=== PATIENT | female | born 1955 | race Caucasian/White ===

== ENCOUNTER → 2019-03-01 | Day surgery (SDC) | payer BC ==
[2019-02-27 15:59] VITALS: BP 132/74
--- NOTE | 2019-02-27 16:25 | PCM.EKG ---
[facility] Test Date: 2019-02-27 Test Time: 16:12:49 Pat Name: AGUSTO KENDALL Department: Room: Gender: F Lead Neurodiagnostic Technologist: ANDREW : 1955 Requested By: MAYANK RAMIREZ Order Number: [id number] Reading MD: Tomi Villar Measurements Intervals [place] Rate: 73 P: 64 ID: [id number] QRS: 31 QRSD: 86 T: 53 QT: 414 QTc: 456 Interpretive Statements Normal sinus rhythm Low voltage QRS Borderline ECG No previous ECG available for comparison Electronically Signed On 03-19-2019 15:28:52 CDT by Tomi Villar Please click the below link to view image of tracing.
[2019-02-27 16:35] LABS: BASOPHIL % 0.4 % (0.0-0.2); EOSINOPHIL # 0.3 10^3/uL (0.0-0.2); EOSINOPHIL % 2.9 % (0.0-5.0); LYMPHOCYTES # 2.6 10^3/uL (1.0-4.8); LYMPHOCYTES % 26.5 % (24.0-44.0); MEAN CORP HGB 29.3 pg (26-34); MONOCYTES # 0.6 10^3/uL (0.3-0.8); MONOCYTES % 6.6 % (5.0-12.0); NEUTROPHIL # 6.1 10^3/uL (1.8-7.7); NEUTROPHILS % 63.4 % (41.0-85.0); RED CELL DISTRIBUTION WIDTH 13.3 % (11.5-14.5)
[2019-02-27 16:45] LABS: CALCIUM 10.7 mg/dL (8.4-10.5); CARBON DIOXIDE 24.1 mmol/L (20.0-32)
[~2019-03-01] VITALS: Ht 157.5 cm; Wt 99.3 kg
[2019-03-01] VITALS (10 sets, daily range): BP systolic 106–130; BP diastolic 62–75
[~2019-03-01] MED LIST: ALBU8.5H7 IH; ASCO500T4 PO; ASPI81TA52 PO; ATOR80TA PO; CHOL100015 PO; CHOL2000 PO; CICL6.1H3 IH; CIPR500T86 PO; CITA10TA4 PO; DECADRON ONE; DILAUDID IV PRN; DIPRIVAN IV ONE; FLUT1BLS3 PO; LACTATED RINGERS 1,000 ML IV SCH; LASIX IV ONE; LASIX IV SCH; LEVO100T5 PO; LIDOCAINE 2% VIAL ONE; LOSA1TAB19 PO; NORCO 7.5MG PO PRN; PEPCID IV ONE; SUBLIMAZE IV PRN; SUBLIMAZE ONE; TAMS-14 PO; TORADOL ONE; TRAM50TA PO; TRANSDERM-SCOP TD ONE; VERSED ONE; ZOFRAN 4 MG/2 ML VIAL ONE
--- NOTE | 2019-03-01 09:11 | OPH ---
DATE OF SURGERY: 03/01/2019 PREOPERATIVE DIAGNOSIS: Right renal calculus. FINAL DIAGNOSIS: Right renal calculus. PROCEDURE: Right extracorporeal shock wave lithotripsy. DESCRIPTION OF PROCEDURE: The patient was brought to the lithotripsy room, was put in supine position on the lithotripsy table. The right preoperative renal ultrasound was initially performed which revealed a calculus in the upper pole of the right kidney measuring 6.1 mm in diameter. There is no evidence of hydronephrosis, no cysts or masses noted. After the patient was given an LMA general anesthesia and after localization of the stone with the use of an ultrasound and fluoroscopy, a right ESWL was then performed using a Dornier Compact Delta II Lithotripter. A total of 1500 shockwaves were delivered to the stone in the upper pole of the right kidney under ultrasound guidance. After fragmentation of the stone as noted in the ultrasound, the procedure was terminated. The patient was awakened and was transferred to the recovery room in stable condition. Lion Floyd MD DR: LISA/berry JOB# [id number]
== END | disposition home or self-care (01) | DRG 694 ==
LOC: SDC 05:59
PROVIDERS: ATTEND Urology
DX: N20.0 Calculus of kidney (principal); E78.5 Hyperlipidemia, unspecified; E03.9 Hypothyroidism, unspecified; K21.9 Gastro-esophageal reflux disease without esophagitis; I10 Essential (primary) hypertension; E66.01 Morbid (severe) obesity due to excess calories; Z68.41 Body mass index [BMI] 40.0-44.9, adult; Z79.82 Long term (current) use of aspirin; Z79.899 Other long term (current) drug therapy; Z88.8 Allergy status to other drugs, medicaments and biological substances; Z98.890 Other specified postprocedural states; Z79.01 Long term (current) use of anticoagulants; Z80.59 Family history of malignant neoplasm of other urinary tract organ; Z80.3 Family history of malignant neoplasm of breast; Z82.5 Family history of asthma and other chronic lower respiratory diseases; Z82.49 Family history of ischemic heart disease and other diseases of the circulatory system; Z83.3 Family history of diabetes mellitus
CPT/HCPCS: 36415; 50590; 80048; 85025; 85610; 85730; 93005; J1100 ×2; J1885; J2001; J2250; J2405 ×2; J3010; J3490 ×2

== ENCOUNTER 2019-04-18 21:19 | Emergency (ER) | payer BC ==
[~2019-04-18] VITALS: Ht 160 cm; Wt 99.3 kg
[~2019-04-18 21:19] MED LIST changes: -DECADRON ONE; -DILAUDID IV PRN; -DIPRIVAN IV ONE; -LACTATED RINGERS 1,000 ML IV SCH; -LASIX IV ONE; -LASIX IV SCH; -LIDOCAINE 2% VIAL ONE; -NORCO 7.5MG PO PRN; -PEPCID IV ONE; -SUBLIMAZE IV PRN; -SUBLIMAZE ONE; -TORADOL ONE; -TRANSDERM-SCOP TD ONE; -VERSED ONE; -ZOFRAN 4 MG/2 ML VIAL ONE
[2019-04-18 21:25] VITALS: BP 130/94
--- NOTE | 2019-04-18 21:25 | NUR ---
ARRIVAL PATIENT PRESENTS WITH COMPLAINTS OF UPPER ABDOMINAL PAIN FOR THE PAST WEEK. DENIES N/V. ALSO REPORT BACK PAIN. VSS. NO SIGNS OF DISTRESS NOTED. MD ROBBIN NOTIFIED.
[2019-04-18 21:40] VITALS: BP 130/94
[2019-04-18] MEDS ORDERED: TORADOL IM STA (21:40)
--- NOTE | 2019-04-18 21:43 | ER.PDOC ---
General Chief Complaint: Abdomen Pain Stated Complaint: ABD PAIN,DIARRHEA Time seen by MD: 21:42 Source: patient Exam Limitations: no limitations History of Present Illness Initial Comments Upper abdominal pain and diarrhea for 1 week. No vomiting, fever or chills. Severity/Quality: moderate, sharpness Radiation: no radiation Associated Symptoms: diarrhea Exacerbated by: nothing Relieved By: nothing Allergies: Coded Allergies: adhesive tape (Verified Allergy, Unknown, BLISTERS, 02/27/19) PT CAN USE PAPER TAPE Uncoded Allergies: STERI STRIPS (Allergy, Unknown, BLISTERS, 07/11/17) Home Meds Active Scripts Tramadol Hcl (TRAMADOL HCL) 50 Mg Tablet, 50 MG PO Q6 PRN for PAIN, #20 TABLET Prov:MAYANK RAMIREZ MD 03/01/19 Tamsulosin Hcl (FLOMAX) 0.4 Mg Cap.er.24h, 0.4 MG PO DAILY24, #21 CAPSULE Prov:MAYANK RAMIREZ MD 03/01/19 Reported Medications Ascorbic Acid (VITAMIN C) 500 Mg Tablet, 500 MG PO BID, TAB 03/01/19 Albuterol Sulfate (PROAIR HFA) 8.5 Gm Hfa.aer.ad, 8.5 GM IH Q4H PRN for JARON RTNESS OF BREATH, INHALATION 02/27/19 Fluticasone/Umeclidin/Vilanter (Trelegy Ellipta 100-62.5-25) 100-62.5 Blst.w.dev, 1 PUFF PO DAILY24 02/27/19 Cholecalciferol (Vitamin D3) (VITAMIN D) 2,000 Unit Capsule, 1 CAP PO DAILY, #30 CAP 3 Refills 02/27/19 Aspirin (ASPIR-LOW) 81 Mg Tablet.dr, 81 MG PO DAILY 02/16/15 Atorvastatin 80MG (LIPITOR 80MG) 80 Mg Tablet, 0.5 TAB PO DAILY, TAB 02/16/15 Levothyroxine Sodium (LEVOTHYROXINE SODIUM) 100 Mcg Tablet, 100 MCG PO DAILY, TABLET 02/16/15 Citalopram Hydrobromide (CITALOPRAM HBR) 10 Mg Tablet, 10 MG PO DAILY, TABLET 02/16/15 Losartan/Hydrochlorothiazide (LOSARTAN-HCTZ 50-12.5 MG TAB) 1 Each Tablet, 1 EACH PO DAILY, TABLET 02/16/15 Vital Signs First Vital Signs Date Time Temp Pulse Resp B/P (MAP) Pulse Ox O2 Delivery O2 Flow Rate FiO2 04/18/19 21:25 97.9 71 18 04/18/19 21:25 96 Room Air 04/18/19 21:40 130/94 (106) Last Vital Signs Date Time Temp Pulse Resp B/P (MAP) Pulse Ox O2 Delivery O2 Flow Rate FiO2 04/18/19 21:40 97.9 71 18 130/94 (106) 96 Room Air Past Medical History Medical History: cancer, high cholesterol, hypertension, thyroid disease Surgical History: appendectomy, knee Social History Smoking: non-smoker Alcohol Use: none Drug Use: none Constitutional: no symptoms reported Respiratory: no symptoms reported Cardiovascular: no symptoms reported Gastrointestinal: see HPI Genitourinary: no symptoms reported All Other Systems: Reviewed and Negative Physical Exam General Appearance: No Apparent Distress, WD/WN Neck: Non-Tender, Full Range of Motion, Supple, Normal Inspection Respiratory: chest non-tender, lungs clear, normal breath sounds, no respiratory distress, no accessory muscle use Cardiovascular: Normal Peripheral Pulses, Regular Rate, Rhythm, No Edema, No Gallop, No JVD, No Murmur Gastrointestinal: Normal Bowel Sounds, No Organomegaly, No Pulsatile Mass, Tenderness (upper abdomen) Back: Normal Inspection, No CVA Tenderness, No Vertebral Tenderness Extremities: Normal Range of Motion, Non-Tender, Normal Inspection, No Pedal Edema, No Calf Tenderness, Normal Capillary Refill, Pelvis Stable Neurologic/Psychiatric: development intern II-XII NML as Tested, No Motor/Sensory Deficits, Alert, Normal Mood/Affect, Oriented x 3 Skin: Normal Color, Warm/Dry Results/Orders Results/Orders Orders - JOSEFINA SIEGEL MD Cbc With Auto Diff (04/18/19 21:40) Comprehensive Metabolic Panel (04/18/19 21:40) Lipase (04/18/19 21:40) Helicobacter Pylori (04/18/19 21:40) PT (04/18/19 21:40) Partial Thromboplastin Time. (04/18/19 21:40) Urinalysis (04/18/19 21:40) Ct Abd/Pelvis Wo Iv Contrast (04/18/19 21:40) Ekg-Routine (04/18/19 21:40) Ketorolac Tromethamine (Toradol) (04/18/19 21:40) Ketorolac Tromethamine (Toradol) (04/18/19 21:48) Urine Culture (04/18/19 UNK) Vital Signs Date Time Temp Pulse Resp B/P (MAP) Pulse Ox O2 Delivery O2 Flow Rate FiO2 04/18/19 21:40 97.9 71 18 130/94 (106) 96 Room Air 04/18/19 21:25 97.9 71 18 96 Room Air 04/18/19 21:25 97.9 71 18 Administered Medications Medications (Trade) Dose Ordered Sig/David Route PRN Reason Start Time Stop Time Status Last Admin Dose Admin Ketorolac Tromethamine (Toradol) 60 mg STAT STAT IM 04/18/19 21:40 04/18/19 21:43 DC 04/18/19 21:55 60 MG Laboratory Tests Test 04/18/19 22:00 04/18/19 22:45 White Blood Count 8.3 10^3/uL (4.5-11.0) Red Blood Count 4.33 10^6/uL (4.00-5.20) Hemoglobin 12.5 g/dL (12.0-15.0) Hematocrit 37.6 % (36.0-46.0) Mean Corpuscular Volume 86.8 fL (78-100) Mean Corpuscular Hemoglobin 28.9 pg (26-34) Mean Corpuscular Hemoglobin Concent 33.2 g/dL (33-37) Red Cell Distribution Width 13.8 % (11.5-14.5) Platelet Count 290 10^3/uL (150-400) Mean Platelet Volume 9.3 fL (7.8-11.0) Neutrophils (%) (Auto) 54.6 % (41.0-85.0) Lymphocytes (%) (Auto) 31.3 % (24.0-44.0) Monocytes (%) (Auto) 10.1 % (5.0-12.0) Neutrophils # (Auto) 4.6 10^3/uL (1.8-7.7) Lymphocytes # (Auto) 2.6 10^3/uL (1.0-4.8) Monocytes # (Auto) 0.8 10^3/uL (0.3-0.8) Absolute Immature Granulocyte (auto 0.02 10^3 u/L (0-2) Immature Granulocytes % 0.20 % (0.00-0.50) Eosinophils % 3.1 % (0.0-5.0) Basophils % 0.7 % (0.0-0.2) H Basophils # 0.1 10^3/uL (0.0-0.1) Eosinophil Count 0.3 10^3/uL (0.0-0.2) H Prothrombin Time 10.2 SEC (9.4-11.5) Prothrombin Time INR (Non-Therap) 1.0 Activated Partial Thromboplast Time 23.6 SEC (24.67-30.72) Sodium Level 141 mmol/L (132-145) Potassium Level 3.2 mmol/L (3.6-5.2) L Chloride Level 104.0 mmol/L (96-109) Carbon Dioxide Level 25.6 mmol/L (20.0-32) Anion Gap 14.6 Blood Urea Nitrogen 16 mg/dL (7-18) Creatinine 0.82 mg/dL (0.59-1.40) Estimated GFR () 85.8 (>/=60) BUN/Creatinine Ratio 19.0 Glucose Level 121 mg/dL (70-110) H Calcium Level 9.8 mg/dL (8.4-10.5) Total Bilirubin 0.4 mg/dL (0.2-1.0) Aspartate Amino Transferase (AST) 19 U/L (0-35) Alanine Aminotransferase (ALT) 25 U/L (12-78) Alkaline Phosphatase 122 U/L (50-136) Total Protein 7.1 g/dL (6.4-8.2) Albumin 3.2 g/dL (3.4-5.0) L Globulin 3.9 Lipase 68 U/L (114-286) L Helicobacter pylori Screen NEGATIVE (NEGATIVE) Urine Collection Type CCMS Urine Color YELLOW (YELLOW) Urine Appearance CLOUDY (CLEAR) H Urine Bilirubin NEGATIVE MG/DL (NEGATIVE) Urine Ketones NEGATIVE (NEGATIVE) Urine Specific [place] 1.020 (1.005-1.035) Urine pH 6 (5.0-6.0) Urine Protein NEGATIVE (NEGATIVE) Urine Urobilinogen NORMAL (NEGATIVE) Urine Nitrate NEGATIVE (NEGATIVE) Urine Leukocyte Esterase 500/uL 2+ (NEGATIVE) Urine Blood 50 2+ (NEGATIVE) H Urine RBC 5-10 RBC/HPF (NONE SEEN) H Urine WBC TNTC WBC/HPF (0-2) H Urine Squamous Epithelial Cells MANY #/HPF (FEW) Urine Renal Epithelial Cells NONE SEEN #/HPF (NONE Urine Bacteria FEW (NONE SEEN) H Urine Glucose NORMAL (NEGATIVE) EKG/XRAY/CT/US CT Comments: No acute intra-abdominal process demonstrated. Course Vitals & review Data Vital Sign - Last 24 Hours 04/18/19 04/18/19 04/18/19 21:25 21:25 21:40 Temp 97.9 97.9 97.9 Pulse 71 71 71 Resp 18 18 18 B/P (MAP) 130/94 (106) Pulse Ox 96 96 O2 Delivery Room Air Room Air Laboratory Tests Test 04/18/19 22:00 04/18/19 22:45 White Blood Count 8.3 10^3/uL Red Blood Count 4.33 10^6/uL Hemoglobin 12.5 g/dL Hematocrit 37.6 % Mean Corpuscular Volume 86.8 fL Mean Corpuscular Hemoglobin 28.9 pg Mean Corpuscular Hemoglobin Concent 33.2 g/dL Red Cell Distribution Width 13.8 % Platelet Count 290 10^3/uL Mean Platelet Volume 9.3 fL Neutrophils (%) (Auto) 54.6 % Lymphocytes (%) (Auto) 31.3 % Monocytes (%) (Auto) 10.1 % Neutrophils # (Auto) 4.6 10^3/uL Lymphocytes # (Auto) 2.6 10^3/uL Monocytes # (Auto) 0.8 10^3/uL Absolute Immature Granulocyte (auto 0.02 10^3 u/L Immature Granulocytes % 0.20 % Eosinophils % 3.1 % Basophils % 0.7 % Basophils # 0.1 10^3/uL Eosinophil Count 0.3 10^3/uL Prothrombin Time 10.2 SEC Prothrombin Time INR (Non-Therap) 1.0 Activated Partial Thromboplast Time 23.6 SEC Sodium Level 141 mmol/L Potassium Level 3.2 mmol/L Chloride Level 104.0 mmol/L Carbon Dioxide Level 25.6 mmol/L Anion Gap 14.6 Blood Urea Nitrogen 16 mg/dL Creatinine 0.82 mg/dL Estimated GFR () 85.8 BUN/Creatinine Ratio 19.0 Glucose Level 121 mg/dL Calcium Level 9.8 mg/dL Total Bilirubin 0.4 mg/dL Aspartate Amino Transf (AST/SGOT) 19 U/L Alanine Aminotransferase (ALT/SGPT) 25 U/L Alkaline Phosphatase 122 U/L Total Protein 7.1 g/dL Albumin 3.2 g/dL Globulin 3.9 Lipase 68 U/L Helicobacter pylori Screen NEGATIVE Urine Collection Type CCMS Urine Color YELLOW Urine Appearance CLOUDY Urine Bilirubin NEGATIVE MG/DL Urine Ketones NEGATIVE Urine Specific [place] 1.020 Urine pH 6 Urine Protein NEGATIVE Urine Urobilinogen NORMAL Urine Nitrate NEGATIVE Urine Leukocyte Esterase 500/uL 2+ Urine Blood 50 2+ Urine RBC 5-10 RBC/HPF Urine WBC TNTC WBC/HPF Urine Squamous Epithelial Cells MANY #/HPF Urine Renal Epithelial Cells NONE SEEN #/HPF Urine Bacteria FEW Urine Glucose NORMAL O2 Sat by Pulse Oximetry: 96 Departure Time of Disposition: 23:54 Disposition: 01 HOME, SELF-CARE Impression: Primary Impression: Nonspecific abdominal pain Additional Impressions: GERD (gastroesophageal reflux disease) UTI (urinary tract infection) Condition: Stable Referrals: [facility] THERMAL SPRAY OPERATOR (PCP) PRIMARY CARE PROVIDER Additional Instructions: Tramadol Macrobid Protonix F/U with your PCP in 1-2 days Return if worsening symptoms or concerns. Duration or Time Spent with Pa: 60 mins Problem Qualifiers Additional Impressions: GERD (gastroesophageal reflux disease) Esophagitis presence: esophagitis presence not specified Qualified Codes: K21.9 - Gastro-esophageal reflux disease without esophagitis UTI (urinary tract infection) Urinary tract infection type: site unspecified Hematuria presence: with hematuria Qualified Codes: N39.0 - Urinary tract infection, site not specified; R31.9 - Hematuria, unspecified JOSEFINA SIEGEL MD Apr 18, 2019 21:43
[2019-04-18] MEDS ORDERED: TORADOL ONE (21:48)
[2019-04-18 22:05] LABS: BASOPHIL # 0.1 10^3/uL (0.0-0.1); BASOPHIL % 0.7 % (0.0-0.2); EOSINOPHIL # 0.3 10^3/uL (0.0-0.2); EOSINOPHIL % 3.1 % (0.0-5.0); LYMPHOCYTES # 2.6 10^3/uL (1.0-4.8); LYMPHOCYTES % 31.3 % (24.0-44.0); MEAN CORP HGB 28.9 pg (26-34); MONOCYTES # 0.8 10^3/uL (0.3-0.8); MONOCYTES % 10.1 % (5.0-12.0); NEUTROPHIL # 4.6 10^3/uL (1.8-7.7); NEUTROPHILS % 54.6 % (41.0-85.0); RED CELL DISTRIBUTION WIDTH 13.8 % (11.5-14.5)
--- NOTE | 2019-04-18 22:12 | PCM.EKG ---
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
[2019-04-18 22:23] LABS: CALCIUM 9.8 mg/dL (8.4-10.5); CARBON DIOXIDE 25.6 mmol/L (20.0-32)
[2019-04-18 22:30] VITALS: BP 120/73
[2019-04-18 22:53] LABS: BILIRUBIN,URINE NEGATIVE (NEGATIVE); UROBILINOGEN,URINE NORMAL (NEGATIVE)
[2019-04-18 23:05] LABS: APPEARANCE,URINE CLOUDY (CLEAR); UA COLOR YELLOW (YELLOW)
[2019-04-18 23:30] VITALS: BP 123/81
--- NOTE | 2019-04-18 23:40 | DIREP ---
PROCEDURE:CT ABD/PELVIS WITHOUT CONTRAST TECHNIQUE:No oral contrast was given. Axial cuts were obtained through the abdomen and pelvis without IV contrast. The images were viewed at lung, liver, bone, and soft tissue settings. Sagittal and coronal reconstructions are provided. COMPARISON:[facility], CT, CT RENAL STONE PROTOCOL, 02/16/2015, 09:59 AM. INDICATIONS:upper abdominal pain FINDINGS: LOWER CHEST:The lung bases are clear. LIVER:Normal. BILIARY:Normal. PANCREAS:Normal. SPLEEN:Normal. KIDNEYS:No evidence of urinary calculi. No evidence of obstructive uropathy. Renal morphology appears unremarkable. ADRENALS:There is a left adrenal nodule with Hounsfield units measuring 17. This measures 1.6 cm and is essentially unchanged dating back 2012. AORTA/VASCULAR:Normal. RETROPERITONEUM:Normal. BOWEL/MESENTERY:Bowel evaluation is limited by the lack of oral contrast. No evidence of bowel obstruction, free intraperitoneal air, or abscess. GI anastomotic sutures seen in the right lower quadrant PELVIS:Normal. BONES:Normal OTHER: The absence of IV contrast limits evaluation of the soft tissues. CONCLUSION:No acute intra-abdominal process demonstrated. Dictated by: Deena Thomas M.D. on 04/18/2019 at 11:35 PM
== END 2019-04-19 00:10 | disposition home or self-care (01) ==
LOC: ER 21:19
DX: K21.9 Gastro-esophageal reflux disease without esophagitis (principal); E78.00 Pure hypercholesterolemia, unspecified; E07.9 Disorder of thyroid, unspecified; N39.0 Urinary tract infection, site not specified; I10 Essential (primary) hypertension; Z79.1 Long term (current) use of non-steroidal anti-inflammatories (NSAID); Z79.82 Long term (current) use of aspirin; Z79.899 Other long term (current) drug therapy; Z88.8 Allergy status to other drugs, medicaments and biological substances
CPT/HCPCS: 36415; 74176; 80053; 81000; 83690; 85025; 85610; 85730; 86677; 87086; 93005; 96372; 99285; J1885

== ENCOUNTER 2020-02-06 05:47 | Emergency (ER) | payer BC ==
[~2020-02-06] VITALS: Ht 160 cm; Wt 98.9 kg
[2020-02-06 06:02] VITALS: BP 138/68
--- NOTE | 2020-02-06 06:10 | NUR ---
IV 20G IV TO RIGHT AC STARTED BY Sasha GUERRERO RN. FLUSHED AND LOCKED WITH 10CC NS.
--- NOTE | 2020-02-06 06:13 | NUR ---
DR DR OLIVER AT BEDSIDE
[2020-02-06] MEDS ORDERED: TORADOL ONE (06:14)
[2020-02-06] MEDS ORDERED: TORADOL IV STA (06:15)
--- NOTE | 2020-02-06 06:17 | ER.PDOC ---
General Chief Complaint: Flank Pain Stated Complaint: KIDNEY STONES Time seen by MD: 06:10 Source: patient Exam Limitations: no limitations History of Present Illness Initial Comments Patient c/o waxing/waning right flank pain onset 2:00 am 02/04. Pain is similar to previous kidney stones. She has had multiple stones and many procedures for stone removal. She denies fever or dysuria. Timing/Duration: 24 hours Severity/Quality: moderate, severe, cramping, sharpness, stabbing Radiation: flank (right) Associated Symptoms: denies symptoms Exacerbated by: nothing Relieved By: nothing Allergies: Coded Allergies: adhesive tape (Verified Allergy, Unknown, BLISTERS, 02/27/19) PT CAN USE PAPER TAPE Uncoded Allergies: STERI STRIPS (Allergy, Unknown, BLISTERS, 07/11/17) Home Meds Active Scripts Tramadol Hcl (TRAMADOL HCL) 50 Mg Tablet, 50 MG PO Q6 PRN for PAIN, #20 TABLET Prov:MAYANK RAMIREZ MD 03/01/19 Tamsulosin Hcl (FLOMAX) 0.4 Mg Cap.er.24h, 0.4 MG PO DAILY24, #21 CAPSULE Prov:MAYANK RAMIREZ MD 03/01/19 Reported Medications Ascorbic Acid (VITAMIN C) 500 Mg Tablet, 500 MG PO BID, TAB 03/01/19 Albuterol Sulfate (PROAIR HFA) 8.5 Gm Hfa.aer.ad, 8.5 GM IH Q4H PRN for SHORTNESS OF BREATH, INHALATION 02/27/19 Fluticasone/Umeclidin/Vilanter (Trelegy Ellipta 100-62.5-25) 100-62.5 Blst.w.dev, 1 PUFF PO DAILY24 02/27/19 Cholecalciferol (Vitamin D3) (VITAMIN D) 2,000 Unit Capsule, 1 CAP PO DAILY, #30 CAP 3 Refills 02/27/19 Aspirin (ASPIR-LOW) 81 Mg Tablet.dr, 81 MG PO DAILY 02/16/15 Atorvastatin 80MG (LIPITOR 80MG) 80 Mg Tablet, 0.5 TAB PO DAILY, TAB 02/16/15 Levothyroxine Sodium (LEVOTHYROXINE SODIUM) 100 Mcg Tablet, 100 MCG PO DAILY, TABLET 02/16/15 Citalopram Hydrobromide (CITALOPRAM HBR) 10 Mg Tablet, 10 MG PO DAILY, TABLET 02/16/15 Losartan/Hydrochlorothiazide (LOSARTAN-HCTZ 50-12.5 MG TAB) 1 Each Tablet, 1 EACH PO DAILY, TABLET 02/16/15 Vital Signs First Vital Signs Date Time Temp Pulse Resp B/P (MAP) Pulse Ox O2 Delivery O2 Flow Rate FiO2 02/06/20 06:02 98.1 83 18 95 02/06/20 06:02 138/68 (91) Room Air Last Vital Signs Date Time Temp Pulse Resp B/P (MAP) Pulse Ox O2 Delivery O2 Flow Rate FiO2 02/06/20 06:02 98.1 83 18 138/68 (91) 95 Room Air Past Medical History Medical History: asthma, high cholesterol, hypertension, other (history of multiple kidney stones) Surgical History: appendectomy, cancer surgery, renal (lithotripsy, stents) Family History Significant Family History: no pertinent family hx Social History Smoking: non-smoker Alcohol Use: none Drug Use: none Constitutional: no symptoms reported EENTM: no symptoms reported Respiratory: no symptoms reported Cardiovascular: no symptoms reported Gastrointestinal: no symptoms reported Genitourinary: flank pain (right) Musculoskeletal: no symptoms reported Skin: no symptoms reported Physical Exam General Appearance: No Apparent Distress, Obese Respiratory: lungs clear, normal breath sounds, no respiratory distress, no accessory muscle use Cardiovascular: Regular Rate, Rhythm, No Murmur Gastrointestinal: Normal Bowel Sounds, Non Tender Back: CVA Tenderness (R) Extremities: Non-Tender, No Pedal Edema, No Calf Tenderness Neurologic/Psychiatric: Alert, Normal Mood/Affect, Oriented x 3 Skin: Normal Color, Warm/Dry Results/Orders Results/Orders Vital Signs Date Time Temp Pulse Resp B/P (MAP) Pulse Ox O2 Delivery O2 Flow Rate FiO2 02/06/20 06:02 98.1 83 18 138/68 (91) 95 Room Air 02/06/20 06:02 98.1 83 18 95 Administered Medications Medications (Trade) Dose Ordered Sig/David Route PRN Reason Start Time Stop Time Status Last Admin Dose Admin Ketorolac Tromethamine (Toradol) 30 mg STAT STAT IV 02/06/20 06:15 02/06/20 06:16 UNV 02/06/20 06:20 30 MG Sodium Chloride 1,000 ml @ 0 mls/hr Q0M STAT IV 02/06/20 06:20 02/06/20 06:21 UNV 02/06/20 06:24 0 MLS/HR Laboratory Tests Test 02/06/20 06:01 02/06/20 07:18 White Blood Count 7.2 10^3/uL (4.5-11.0) Red Blood Count 4.80 10^6/uL (4.00-5.20) Hemoglobin 14.1 g/dL (12.0-15.0) Hematocrit 41.5 % (36.0-46.0) Mean Corpuscular Volume 86.5 fL (78-100) Mean Corpuscular Hemoglobin 29.4 pg (26-34) Mean Corpuscular Hemoglobin Concent 34.0 g/dL (33-36.5) Red Cell Distribution Width 13.1 % (11.5-14.5) Platelet Count 305 10^3/uL (150-400) Mean Platelet Volume 9.1 fL (7.8-11.0) Neutrophils (%) (Auto) 53.9 % (41.0-85.0) Lymphocytes (%) (Auto) 35.9 % (24.0-44.0) Monocytes (%) (Auto) 6.0 % (5.0-12.0) Neutrophils # (Auto) 3.9 10^3/uL (1.8-7.7) Lymphocytes # (Auto) 2.59 10^3/uL1 (1.0-4.8) Monocytes # (Auto) 0.4 10^3/uL (0.3-0.8) Absolute Immature Granulocyte (auto 0.02 10^3 u/L (0-2) Absolute Eosinophils (auto) 0.2 10^3/uL (0.0-0.2) Immature Granulocytes % 0.30 % (0.00-0.50) Eosinophils % 3.2 % (0.0-5.0) Basophils % 0.7 % (0.0-0.2) H Basophils # 0.1 10^3/uL (0.0-0.1) Prothrombin Time 9.9 SEC (9.3-11.3) Prothrombin Time INR (Non-Therap) 1.0 Activated Partial Thromboplast Time 23.9 SEC (24.67-30.72) Sodium Level 140 mmol/L (132-145) Potassium Level 3.4 mmol/L (3.6-5.2) L Chloride Level 104.0 mmol/L (96-109) Carbon Dioxide Level 24.1 mmol/L (20.0-32) Anion Gap 15.3 Blood Urea Nitrogen 19 mg/dL (7-18) H Creatinine 0.99 mg/dL (0.59-1.40) Estimated GFR () 68.8 (>/=60) Est GFR (CKD-EPI)(Non-Afr Salvadorean) 56.8 (>/=60) BUN/Creatinine Ratio 19.0 Glucose Level 133 mg/dL (70-110) H Calcium Level 9.7 mg/dL (8.4-10.5) Total Bilirubin 0.7 mg/dL (0.2-1.0) Aspartate Amino Transferase (AST) 27 U/L (0-35) Alanine Aminotransferase (ALT) 24 U/L (12-78) Alkaline Phosphatase 148 U/L (50-136) H Total Protein 7.6 g/dL (6.4-8.2) Albumin 3.4 g/dL (3.4-5.0) Globulin 4.2 Urine Collection Type VOID Urine Color YELLOW (YELLOW) Urine Appearance CLOUDY (CLEAR) H Urine Bilirubin NEGATIVE MG/DL (NEGATIVE) Urine Ketones NEGATIVE (NEGATIVE) Urine Specific [place] 1.025 (1.005-1.035) Urine pH 5.5 (5.0-6.0) Urine Protein NEGATIVE (NEGATIVE) Urine Urobilinogen NEGATIVE (NEGATIVE) Urine Nitrate NEGATIVE (NEGATIVE) Urine Leukocyte Esterase SMALL (NEGATIVE) Urine Blood SMALL (NEGATIVE) Urine RBC 0-2 RBC/HPF (NONE SEEN) Urine WBC 10-25 WBC/HPF (0-2) H Urine Squamous Epithelial Cells MODERATE #/HPF (FEW) Urine Bacteria MANY (NONE SEEN) H Urine Glucose NORMAL (NEGATIVE) Progress Progress WBC 7.2; creatinine WNL; CT does not identify ureterolithiasis; UA pending at time of shift change Patient's pain is "almost zero" after toradol. Final disposition per Dr. Josefina LEUNG DEPART Departure Time of Disposition: 07:57 Disposition: 01 HOME, SELF-CARE Impression: Primary Impression: Right flank pain Additional Impression: UTI (urinary tract infection) Condition: Stable Referrals: [facility] INDUSTRIAL ROOFER HELPER (PCP) PRIMARY CARE PROVIDER Additional Instructions: Cipro Continue Tramadol at home F/U with your PCP in 2-3 days Return to ED if worsening or concerns Duration or Time Spent with Pa: 60 min Problem Qualifiers Additional Impression: UTI (urinary tract infection) Urinary tract infection type: site unspecified Hematuria presence: without hematuria Qualified Codes: N39.0 - Urinary tract infection, site not specified AIXA OLIVER DO Feb 06, 2020 06:17 JOSEFINA SIEGEL MD Feb 06, 2020 08:00
[2020-02-06] MEDS ORDERED: NS 1000ML 1,000 ML ONE (06:19)
[2020-02-06] MEDS ORDERED: NS 1000ML 1,000 ML STA (06:20)
[2020-02-06 06:23] LABS: BASOPHIL # 0.1 10^3/uL (0.0-0.1); BASOPHIL % 0.7 % (0.0-0.2); EOSINOPHIL # 0.2 10^3/uL (0.0-0.2); EOSINOPHIL % 3.2 % (0.0-5.0); LYMPHOCYTES # 2.59 10^3/uL1 (1.0-4.8); LYMPHOCYTES % 35.9 % (24.0-44.0); MEAN CORP HGB 29.4 pg (26-34); MONOCYTES # 0.4 10^3/uL (0.3-0.8); NEUTROPHIL # 3.9 10^3/uL (1.8-7.7); NEUTROPHILS % 53.9 % (41.0-85.0); PLATELET COUNT 305 10^3/uL (150-400); RED CELL DISTRIBUTION WIDTH 13.1 % (11.5-14.5)
[2020-02-06 06:40] LABS: CALCIUM 9.7 mg/dL (8.4-10.5); CARBON DIOXIDE 24.1 mmol/L (20.0-32)
--- NOTE | 2020-02-06 06:48 | DIREP ---
PROCEDURE:CT ABD/PELVIS WITHOUT CONTRAST TECHNIQUE:No oral contrast was given. Axial cuts were obtained through the abdomen and pelvis without IV contrast. The images were viewed at lung, liver, bone, and soft tissue settings. Sagittal and coronal reconstructions are provided. COMPARISON:[facility], CT, CT ABD/PELVIS W/O, 04/18/2019, 10:07 PM. INDICATIONS:flank pain FINDINGS: LOWER CHEST:The lung bases are clear. LIVER:Normal. BILIARY:Normal. PANCREAS:Normal. SPLEEN:Normal. KIDNEYS:No evidence of urinary calculi. No evidence of obstructive uropathy. Renal morphology appears unremarkable. ADRENALS:Stable left adrenal adenoma. AORTA/VASCULAR:Normal. RETROPERITONEUM:Normal. BOWEL/MESENTERY:Bowel evaluation is limited by the lack of oral contrast. No evidence of bowel obstruction, free intraperitoneal air, or abscess. GI anastomotic sutures in the right colon. ABDOMINAL WALL:Prior ventral hernia repair. No recurrent defect. PELVIS:Normal. BONES:Normal OTHER: The absence of IV contrast limits evaluation of the soft tissues. CONCLUSION: No acute intra-abdominal process Dictated by: Deena Thomas M.D. on 02/06/2020 at 06:38 AM
[2020-02-06 07:00] VITALS: BP 127/62
[2020-02-06 07:42] LABS: APPEARANCE,URINE CLOUDY (CLEAR); BILIRUBIN,URINE NEGATIVE (NEGATIVE); UA COLOR YELLOW (YELLOW)
[2020-02-06 07:43] LABS: UROBILINOGEN,URINE NEGATIVE (NEGATIVE)
[2020-02-06 08:00] VITALS: BP 142/60
== END 2020-02-06 08:07 | disposition home or self-care (01) ==
LOC: ER 05:47
DX: N39.0 Urinary tract infection, site not specified (principal); J45.909 Unspecified asthma, uncomplicated; E78.00 Pure hypercholesterolemia, unspecified; I10 Essential (primary) hypertension; Z88.8 Allergy status to other drugs, medicaments and biological substances
CPT/HCPCS: 36415; 74176; 80053; 81000; 85025; 85610; 85730; 87086; 96361; 96374; 99284; J1885; J7030

== ENCOUNTER → 2021-06-09 | Outpatient (CLI) | payer BC ==
[~2021-06-09] MED LIST changes: -CITA10TA4 PO; +CITA10TA5 PO
== END | disposition home or self-care (01) ==
LOC: NPLAB 11:43
PROVIDERS: ATTEND Nurse Practitioner Family
DX: R05.1 Acute cough (principal); Z20.822 Contact with and (suspected) exposure to COVID-19
CPT/HCPCS: 87426

== ENCOUNTER → 2021-08-19 | Outpatient (CLI) | payer BC ==
--- NOTE | 2021-08-19 11:36 | DIREP ---
PROCEDURE:MRI JOINT LOWER EXTREMITY-RT W/O COMPARISON:[facility], CR, XRAY KNEE 1-2 VWS-RT, 10/03/2020, 08:42 PM. INDICATIONS:RIGHT KNEE PAIN TECHNIQUE:A complete multi-planar MRI was performed. FINDINGS: PATELLOFEMORAL:Mild chondromalacia of most significant along the median ridge and lateral patellar facet. The extensor mechanism is intact. MEDIAL COMPARTMENT MEDIAL MENISCUS:There appears to be a radial tear of the posterior horn of the medial meniscus with some intact fibers in the peripheral 3rd of the meniscus. HYALINE CARTILAGE:Moderate to severe chondromalacia involving the weight-bearing portions of the femoral condyle and tibial plateau. Mild joint space narrowing. BONES:Mild marginal osteophytes. Subcortical cystic changes subjacent to the tibial spines. No fracture or suspicious lesion. MCL AND MEDIAL CAPSULE:Normal medial collateral ligament and medial capsule. LATERAL COMPARTMENT LATERAL MENISCUS:Normal. No visible tear or significant degeneration. HYALINE CARTILAGE:Normal. No visible defect. BONES:Normal. No marrow pathology, fracture, or significant arthropathy. LCL/POSTEROLAT. COMPLEX:Normal lateral collateral ligament, fascicles, lateral capsule and ligaments. ACL:Normal appearing ligament. PCL:Normal appearing ligament. MENISCOFEMORAL:Normal meniscofemoral ligaments. EFFUSION:Small joint effusion. No loose bodies or synovitis. OTHER:Beaulieu cyst measuring 3.1 cm in cranial caudal dimension. CONCLUSION: 1. Radial tear of the posterior horn of the medial meniscus with some intact fibers in the peripheral 3rd of the meniscus. 2. Moderate to severe osteoarthritis of the right knee most prominent in the medial compartment with joint space narrowing and moderate to severe chondromalacia. 3. Small joint effusion. 4. Small Beaulieu's cyst. Dictated by: Tomi Arango M.D. on 08/19/2021 at 11:22 AM
== END | disposition home or self-care (01) ==
LOC: RAD 09:09
PROVIDERS: ATTEND Orthopaedic Surgery
DX: S83.241A Other tear of medial meniscus, current injury, right knee, initial encounter (principal); M17.11 Unilateral primary osteoarthritis, right knee; M71.21 Synovial cyst of popliteal space [Baker], right knee; M25.461 Effusion, right knee; X58.XXXA Exposure to other specified factors, initial encounter; Y93.89 Activity, other specified; Y92.89 Other specified places as the place of occurrence of the external cause; Y99.8 Other external cause status
CPT/HCPCS: 73721

== ENCOUNTER → 2021-08-25 | Outpatient (CLI) | payer BC | END | disposition home or self-care (01) | LOC: RAD 13:02 | PROVIDERS: ATTEND Orthopaedic Surgery | DX: M17.11 Unilateral primary osteoarthritis, right knee (principal) | CPT/HCPCS: 73700 ==

== ENCOUNTER 2021-09-30 13:20 | Inpatient (IN) | payer BC ==
[2021-09-27 15:26] VITALS: BP 127/79
[2021-09-27 16:25] LABS: BASOPHIL % 0.2 % (0.0-0.2); LYMPHOCYTES # 2.53 10^3/uL1 (1.0-4.8); LYMPHOCYTES % 24.2 % (24.0-44.0); MEAN CORP HGB 29.1 pg (26-34); MONOCYTES # 0.6 10^3/uL (0.3-0.8); MONOCYTES % 5.7 % (5.0-12.0); NEUTROPHIL # 7.3 10^3/uL (1.8-7.7); NEUTROPHILS % 69.5 % (41.0-85.0); PLATELET COUNT 335 10^3/uL (150-400); RED CELL DISTRIBUTION WIDTH 13.3 % (11.5-14.5)
[2021-09-27 16:41] LABS: CARBON DIOXIDE 24.2 mmol/L (20.0-32)
--- NOTE | 2021-09-27 19:23 | DIREP ---
PROCEDURE:CHEST 2 VIEWS COMPARISON:None. INDICATIONS:PRE-OP OA RIGHT KNEE FINDINGS: LUNGS/PLEURA:No significant pulmonary parenchymal abnormalities. No effusions. No pneumothorax VASCULATURE:Normal. Unremarkable pulmonary vasculature. CARDIAC:Normal. No cardiac silhouette abnormality or cardiomegaly. MEDIASTINUM:Atherosclerotic aorta with no visible aneurysm. BONES:Normal. No fracture or visible bony lesion. OTHER:Negative. CONCLUSION:No acute findings Dictated by: Stalin Hood MD on 09/27/2021 at 07:21 PM
--- NOTE | 2021-09-28 08:56 | PCM.EKG ---
[facility] Test Date: 2021-09-27 Test Time: 16:14:59 Pat Name: AGUSTO RODRÍGUEZ Department: Room: Gender: F [employer]: : 1955 Requested By: TRAY MAE Order Number: [id number] Reading MD: Measurements Intervals [place] Rate: 62 P: 35 WA: 146 QRS: -3 QRSD: 100 T: 46 QT: 443 QTc: 450 Interpretive Statements Sinus rhythm Borderline low voltage, extremity leads No previous ECG available for comparison Please click the below link to view image of tracing.
[~2021-09-30] VITALS: Ht 160 cm; Wt 102.5 kg
[2021-09-30] VITALS (8 sets, daily range): BP systolic 118–130; BP diastolic 56–88
--- NOTE | 2021-09-30 10:38 | PCM.HP ---
History of Present Illness Reason for Visit: Right knee pain History of Present Illness 66 year old female presents with complaints of right knee pain for the last several years that has progressively gotten worse since September of 2020. She complains of popping and giving way of the knee. She reports she can walk less than a block before having severe pain. She has tried tylenol, ice/heat, knee sleeves, oxm-iwy-ruyay bracing and cortisone injections without significant relief of pain. She cannot take NSAIDs due to a history of renal issues. She is seeking a right knee replacement today. Past Medical History Cardiac: HTN, Hyperlipidemia Pulmonary: Asthma, COPD Heme/Onc: Cancer (Breast) Psychiatric: Depression Endocrine: Hypothyroidism Past Surgical History: Appendectomy, Arthroscopy (Left knee), Hernia Repair (x4), Other (Colon resection) Past Social History Smoke: No Alcohol: none Drugs: None Lives: with Family Domestic Violence: Neg Travel Hx EBOLA RISK:Travel to/contact w: No Review of Systems Constitutional: No: Fever, Chills, Sweats, Weakness, Malaise, Other Eyes: No: Pain, Vision change, Conjunctivae inflammation, Eyelid inflammation, Other, Redness ENT: No: Ear pain, Ear discharge, Nose pain, Nose discharge, Nose congestion, Mouth pain, Mouth swelling, Throat pain, Throat swelling, Other Respiratory: No: Cough, Dry, Shortness of breath, SOB with excertion, Wheezing, Hemoptysis, Pleuritic Pain, Sputum, Wheezing, Other Cardiovascular: No: Chest Pain, Palpitations, Orthopnea, Paroxysmal Noc. Dyspnea, Edema, Lt Headedness, Other Gastrointestinal: No: Nausea, Vomiting, Abdominal Pain, Diarrhea, Constipation, Melena, Hematochezia, Other Genitourinary: No Dysuria, No Frequency, No Incontinence, No Hematuria, No Retention, No Other Musculoskeletal: leg pain (R knee pain) Skin: No: Rash, Lesions, Jaundice, Bruising, Other Neurological: No: Weakness, Numbness, Incoordination, Change in speech, Confusion, Seizures, Other Allergies: Coded Allergies: adhesive tape (Verified Allergy, Unknown, BLISTERS, 02/27/19) PT CAN USE PAPER TAPE Uncoded Allergies: STERI STRIPS (Allergy, Unknown, BLISTERS, 07/11/17) Scheduled Ascorbic Acid (Vitamin C), 500 MG PO BID, (Reported) Aspirin (Aspir-Low), 81 MG PO DAILY, (Reported) Atorvastatin 80MG (Lipitor 80MG), 0.5 TAB PO DAILY, (Reported) Cholecalciferol (Vitamin D3) (Vitamin D), 1 CAP PO DAILY, (Reported) Citalopram Hydrobromide (Citalopram Hbr), 10 MG PO DAILY, (Reported) Cyanocobalamin (Vitamin B-12) (B-12), 1 TAB PO BID, (Reported) Fluticasone/Umeclidin/Vilanter (Trelegy Ellipta 100-62.5-25), 1 PUFF PO DAILY24, (Reported) Levothyroxine Sodium (Levothyroxine Sodium), 100 MCG PO DAILY, (Reported) Losartan/Hydrochlorothiazide (Losartan-Hctz 100-12.5 Mg Tab), 1 TAB PO DAILY, (Reported) Zinc (Zinc), 1 TAB PO QD, (Reported) Scheduled PRN Albuterol Sulfate (Proair Hfa), 8.5 GM IH Q4H PRN for SHORTNESS OF BREATH, (Reported) Discontinued Medications Tamsulosin Hcl (Flomax), 0.4 MG PO DAILY24 Discontinued Reason: No Longer Taking Tramadol Hcl (Tramadol Hcl), 50 MG PO Q6 PRN for PAIN Discontinued Reason: No Longer Taking VTE VTE Risk Total Score: >5 VTE Risk Score VTE Risk: Score 0-1 = Low Risk (Aggressive mobilization; early ambulation; no VTE prophylaxis required) Score 2: Moderate Risk (Intermittent/Pneumatic Compression Device OR Lovenox/Heparin/Coumadin) Score 3-4: High Risk (Intermittent/Pneumatic Compression Device AND Lovenox/Heparin/Coumadin) Score > or =5: Highest Risk (Intermittent/Pneumatic Compression Device AND Lovenox/Heparin/Coumadin) Antico:Hep/LMWH/Coum/Xarelto: Yes Mechanical device ordered: Yes VTE VTE Present on Admission: No Currently receiving anticoagul: No VTE Risk Total Score: >5 Exam General Appearance: Alert, Oriented X3, Cooperative HEENT: Atraumatic, PERRLA Respiratory: Clear to auscultation, Normal air movement Cardiovascular: Regular rate, Normal S1, Normal S2 Abdominal: Normal bowel sounds, Soft, No tenderness Extremities: No cyanosis, Normal pulses, Other (Right knee has 1-2+ effusion. Full extension, 120 degrees of flexion. Good medial and lateral stability. She has point tenderness to the medial and posterior joint line. ) Skin: No rash, No breakdown, No lesions Neuro: Normal speech, Normal tone, Sensation intact, Cranial nerves 3-12 NL Psych/Mental Status: Mental status NL Assessment/Plan Assessment/Plan Assessment/Plan Radiology: MRI shows a tear to the posterior horn of the medial meniscus, moderate to severe narrowing of the medial femoral condyle with osteophytes and subchondral cysts. Assessment: Right knee OA Plan: R TKA Problems: (1) Osteoarthritis of right knee Status: Chronic ICD Code: M17.11 - Unilateral primary osteoarthritis, right knee SNOMED: [id number] (2) COPD (chronic obstructive pulmonary disease) Status: Chronic ICD Code: J44.9 - Chronic obstructive pulmonary disease, unspecified SNOMED: [id number] Patient History: Alzheimer's disease 32 MOTHER Asthma 32 MOTHER Cerebrovascular disorder 32 MOTHER Chronic obstructive pulmonary disease 32 MOTHER Congestive heart failure 32 MOTHER 33 FATHER, , Age:71 (PASSED OF A HEART ATTACK) Diabetes insipidus G8 BROTHER G8 BROTHER FH: breast cancer G8 SISTER G8 SISTER FH: coronary artery bypass surgery 32 MOTHER 33 FATHER, , Age:71 FH: coronary artery disease 32 MOTHER 33 FATHER, , Age:71 FH: heart attack 32 MOTHER 33 FATHER, , Age:71 FH: uterine cancer 32 MOTHER High cholesterol G8 SISTER Hypertension 32 MOTHER G8 BROTHER G8 SISTER No Family History of: Diabetes mellitus Parkinson's disease Unknown AIME CENTENO September 30, 2021 10:38
[2021-09-30] MEDS: LACTATED RINGERS 1,000 ML IV SCH ×3 (11:30→23:26)
[2021-09-30] MEDS: TYLENOL PO SCH ×3 (12:00→23:25)
[~2021-09-30 13:20] MED LIST changes: +BACTROBAN OINTMENT TP ONE; +CELEBREX ONE; +CELEBREX PO ONE; +CEPACOL SORE THROAT LOZENGE MM PRN; +CYAN100073 PO; +DEXAMETHASONE 10 MG/ML VIAL IV ONE; +DEXAMETHASONE 10 MG/ML VIAL ONE; +LACTATED RINGERS 1,000 ML IV SCH; +LOSA1TAB25 PO; +NEURONTIN ONE; +NEURONTIN PO ONE; +NS 1000ML 1,000 ML ONE; +NS 250ML 250 ML ONE; +NS 3000ML IRR IR ONE; +OFIRMEV 100 ML IV ONE; +OFIRMEV IV ONE; +REGLAN IV PRN; +SENSORCAINE-MPF 0.25% VIAL ONE; +SODIUM CHLORIDE IRR BOTTLE IR ONE; +TRANSDERM-SCOP TD ONE; +ULTRAM PO ONE; +ULTRAM PO PRN; +VANCOMYCIN 1.5 GM/300 ML BAG 300 ML IV ONE; +VANCOMYCIN HCL 1.5 GM in NS 250ML 300 ML IV ONE; +VANCOMYCIN HCL 2 GM ONE; +VENTOLIN HFA IH PRN; +VERSED ONE; +WATER ONE; +ZINC50TA42 PO
[2021-09-30] MEDS ORDERED: EXPAREL 266 MG/20 ML VIAL IJ ONE (13:21)
[2021-09-30] MEDS ORDERED: TRANEXAMIC ACID ONE (13:44)
[2021-09-30] MEDS ORDERED: DIPRIVAN 100 ML IV ONE (13:44)
[2021-09-30] MEDS ORDERED: ZOFRAN ONE (13:44)
[2021-09-30] MEDS: ULTRAM PO PRN (17:14)
--- NOTE | 2021-09-30 18:36 | NUR ---
NO PRN MDI TXS NEEDED OR WARRANTED AT THIS TIME; BERTHA STATED SHE WAS FINE - SHE TAKES MDI TX NEEDED AT HOME; NO ACUTE RESPIRATORY DISTRESS NOTED Addendum: 09/30/21 at 1836 by Mel Kumari RRT, Contract RT Amended: Links added.
[2021-09-30 20:08] LABS: MEAN CORP HGB 29.2 pg (26-34); RED CELL DISTRIBUTION WIDTH 13.4 % (11.5-14.5)
--- NOTE | 2021-09-30 20:13 | OPH ---
DATE OF SURGERY: 09/30/2021 DICTATOR NAME: Jovanni Rodriguez MD PREOPERATIVE DIAGNOSIS: Osteoarthritis of the right knee. POSTOPERATIVE DIAGNOSIS: Osteoarthritis of the right knee. OPERATIVE PROCEDURE: Right total knee arthroplasty using Medacta Sphere knee, size 2+ femur, a size 2 tibia, a 14 mm insert. All components were cemented. SURGEON: Jovanni Rodriguez M.D. ANESTHESIA: Spinal. TOURNIQUET TIME: 56 minutes at 300 mmHg. DRAINS: None. BLOOD LOSS: 600 mL. DESCRIPTION OF INDICATIONS: The patient is a 66-year-old female who has had pain about the right knee for several years. Pain has gotten worse in the last year. She complains of pain and giving way about the knee. She can walk less than a block before complaining of severe pain. The patient cannot take any anti-inflammatories because of renal problems. She takes Tylenol for the pain. She has also tried off the shelf bracing as well as a knee sleeve and heat and ice. She done a home exercise program. Right knee has 1 to 2+ effusion. She has full extension with 120 degrees of flexion, good medial and lateral stability. Rebecca and posterior drawer exams were negative. The x-ray showed she is fmdg-[id number]-rvls medially as well as about the patellofemoral joint. The patient's MRI scan shows tricompartmental OA about the knee, mainly medially and about the patellofemoral joint. The patient was taken to the operating room today for the above procedure for pain relief. DESCRIPTION OF PROCEDURE: The patient was given a spinal anesthetic by the anesthesia team and then placed on the operating table in the supine position. The right thigh was well padded and a tourniquet was applied. Right lower extremity was then sterilely prepped and draped. Right lower extremity was exsanguinated with an Esmarch and then the tourniquet was inflated to 300 mmHg. The patient had the knee flexed to 90 degrees. An anterior incision was made about the knee. Incision was taken through the skin, the subcutaneous tissues. Full thickness flaps were developed medially and laterally. The patient had a medial parapatellar arthrotomy performed. The patella was deviated laterally. The patient had the capsule and the MCL released around the posteromedial corner. The medial and lateral meniscectomies were performed and the anterior and posterior cruciate ligaments were released. The patient had the MyKnee femoral cutting guide placed about the distal femur and held into position with multiple pins. The distal femoral cut was made with the power saw. The #2 femoral jig, size 2+ was placed about the distal femur and held into position with 2 pins and 2 screws. The anterior and posterior femoral cuts were made as were the chamfer cuts. The patient then had the tibia subluxed anteriorly. Medial and lateral meniscectomies were completed. The patient had the MyKnee tibial guide placed about the proximal tibia and the tibial cut was made with the power saw. The tibia was trialled and a size #2 had good coverage. Tibial trial was held into position with multiple pins and the central drill hole was made with the reamer. The cruciate punch was used to stabilize the tibial component. We started with a 10 mm insert and worked up to a size 14. The 14 allowed for full extension as well as excellent medial and lateral support and excellent anterior and posterior stability. The patella was everted. Peripheral osteophytes were trimmed. The peripheral edges were cauterized. There was excellent tracking of the patella and therefore, it was not resurfaced. The patient had the final medial and lateral femoral drill holes made. The femoral sulcus cut was made. The trial components were all removed. The wounds were then all copiously irrigated and the bony ends were dried. The patient had the size 2 tibial component cemented into position. The excess cement was removed with curettes. The size 14 polyethylene component was impacted into position and secured with an anterior screw. A size 2+ femoral component was likewise cemented into position. Once all the excess cement was removed and the cement had hardened, then the tourniquet was released. The bleeding was controlled with the Aquamantys device. The patient had the wound irrigated with Betadine-containing solution for 3 minutes. The patient then had the capsule closed with a #2 PDS in interrupted [id number] manner. The subcutaneous was closed in two layers with 2-0 barbed Monocryl in a running manner. The skin was closed with a staple gun. A suction Prevena dressing was applied, reinforced with 4 x 4s, cast padding, and Benjamin wrap. The patient was sent to recovery in stable condition. Jovanni Rodriguez MD DR: PAU/RAGHAV TID: [id number] RECEIPT: [id number]
[2021-09-30] MEDS: TRELEGY ELLIPTA 100-62.5-25 IH SCH (21:00)
[2021-09-30] MEDS: BACTROBAN TP SCH ×2 (21:00→21:35)
[2021-09-30] MEDS: VITAMIN C PO SCH (21:27)
[2021-09-30] MEDS: TORADOL IV PRN (21:37)
--- NOTE | 2021-10-01 01:08 | DIREP ---
PROCEDURE:XRAY KNEE 2 VWS-RT COMPARISON:[facility], , XRAY KNEE 1-2 VWS-RT, 10/03/2020, 08:42 PM. INDICATIONS:TKA FINDINGS: BONES:Total arthroplasty of the right knee. No visible fracture. No dislocation. JOINTS:Total arthroplasty components. Minimal gas in the joint. SOFT TISSUES:Anterior skin opal, soft tissue gas and edema. Anterior wound VAC OTHER:No additional findings. CONCLUSION:Changes consistent with recent right knee arthroplasty. Dictated by: Reji Johnson M.D. on 10/01/2021 at 01:06 AM
[2021-10-01 04:30] VITALS: BP 122/70
[2021-10-01 05:18] LABS: MEAN CORP HGB 29.4 pg (26-34); RED CELL DISTRIBUTION WIDTH 13.3 % (11.5-14.5)
[2021-10-01] MEDS: TYLENOL PO SCH ×4 (05:48→23:52)
[2021-10-01] MEDS ORDERED: SYNTHROID PO SCH (06:30)
[2021-10-01 08:16] VITALS: BP 130/81
[2021-10-01] MEDS ORDERED: COZAAR PO SCH (09:00)
[2021-10-01] MEDS ORDERED: HYDROCHLOROTHIAZIDE PO SCH (09:00)
[2021-10-01] MEDS: VITAMIN C PO SCH ×2 (09:00→21:00)
[2021-10-01] MEDS ORDERED: CeleXA PO SCH (09:00)
[2021-10-01] MEDS: PEPCID PO SCH (09:00)
[2021-10-01] MEDS ORDERED: LIPITOR PO SCH (09:00)
[2021-10-01] MEDS: BACTROBAN TP SCH ×2 (09:29→21:00)
[2021-10-01] MEDS: VANCOMYCIN 1.5 GM/300 ML BAG 300 ML IV SCH ×3 (09:29→20:00)
[2021-10-01] MEDS: COLACE PO SCH (09:29)
--- NOTE | 2021-10-01 10:20 | NUR ---
No Ventolin MDI treatment warranted or requested at this time; [facility] has brought her home medication of Trelogy; [facility] administered her Trelogy this am; no acute respiratory distress noted Addendum: 10/01/21 at 1021 by Mel Kumari RRT, Contract RT Amended: Links added.
[2021-10-01] MEDS: TRELEGY ELLIPTA 100-62.5-25 IH SCH (11:00)
[2021-10-01 12:20] VITALS: BP 129/57
--- NOTE | 2021-10-01 13:29 | NUR ---
PATIENT TELEMETRY TAKEN OFF PER POST OP PROTOCOL [place]
[2021-10-01] MEDS: XARELTO PO SCH (14:05)
--- NOTE | 2021-10-01 14:48 | NUR ---
DISCHARGE PLAN - PT EXTRA 1100 10/03/21 CM VISITED WITH PATIENT AND SPOUSE ABOUT DISCHARGE PLANS AND NEEDS. PATIENT CURRENTLY LIVES@HOME WITH HER SPOUSE. SHE HAS 2 WALKERS AND A SHOWER BENCH AND THEY HAVE PURCHASED HER OWN HOME O2 CONCENTRATOR AND SHE IS ON 2L/NC@HOME. PATIENT REPORTS THAT SHE SEE'S CARSON BARRON NP FOR PCP. PATIENT EDUCATED ON OPTIONS OF IP REHAB, HOME HEALTH AND OUTPATIENT THERAPY. PATIENT REPORTS THAT SHE "WANTS TO GO TO OUTPATIENT THERAPY[facility] AND SEE [facility]. THAT'S THE ONE THAT IS NEXT DOOR TO [place] [id number]." CM INSTRUCTED PATIENT THAT WAS PT EXTRA. PATIENT REQUEST CM MAKE PATIENT'S APPT BEFORE NOON AND LATE MORNING IF POSSIBLE. [facility] CHOICE LETTER SIGNED AND [facility] CHOICE LETTER SIGNED VIA PATIENT. CM CONTACTED PT EXTRA THIS AM AND SPOKE WITH CHRISTIE. APPT MADE FOR 10/03/21@1100 AM. CM FAXED CLINICALS TO PT EXTRA@[phone]. FAX CONFIRMATION CONFIRMED COMPLETE. IN ID WEEKLY MEETING CM INFORMED THAT PATIENT HAD DECIDED TO GO WITH [facility] OT FOR PT. CM WENT TO SEE PATIENT THIS AFTERNOON AROUND 1400 AND REVISITED WITH PATIENT. PATIENT@THIS TIME WANTS TO CONTINUE WITH PATIENT'S FIRST REQUEST TO DISCHARGE HOME WITH SPOUSE AND HAS 1ST APPT WITH PT EXTRA ON 10/03/21@1100. CM WROTE DATE AND TIME ON BOARD IN PATIENT'S ROOM. GABRIELE INFORMED DREAD MCCOLLUM RN CHARGE NURSE OF PLAN FOR DISCHARGE. Addendum: 10/01/21 at 1514 by Yin Edwards RN,Case Managemen [facility]IN [facility]RECTION - APPOINTMENT@PT EXTRA IS Monday10/04/21@1100.
[2021-10-01 16:50] VITALS: BP 125/67
[2021-10-01] MEDS: ULTRAM PO PRN (16:58)
[2021-10-01 19:45] VITALS: BP 130/58
[2021-10-01] MEDS: TORADOL IV PRN (20:57)
[2021-10-01] MEDS: ZINC SULFATE PO SCH (21:00)
[2021-10-01] MEDS ORDERED: VITAMIN C PO SCH (21:00)
[2021-10-01] MEDS ORDERED: ZINC SULFATE PO SCH (21:00)
[2021-10-01] MEDS ORDERED: VANCOMYCIN HCL 1 GM ONE (21:21)
[2021-10-01] MEDS ORDERED: HNS 500ML 500 ML IV ONE (21:22)
[2021-10-02 00:23] VITALS: BP 122/61
[2021-10-02 04:31] VITALS: BP 121/71
[2021-10-02] MEDS: SYNTHROID PO SCH (06:24)
[2021-10-02] MEDS: TYLENOL PO SCH ×4 (06:25→23:15)
[2021-10-02] MEDS: NON-FORMULARY MEDICATION 1 EA EA PO SCH ×2 (06:25→06:26)
[2021-10-02] MEDS: HYDROCHLOROTHIAZIDE PO SCH (06:26)
[2021-10-02] MEDS: VITAMIN B-12 PO SCH (06:26)
[2021-10-02] MEDS: CeleXA PO SCH (06:26)
[2021-10-02] MEDS: COZAAR PO SCH (06:26)
[2021-10-02] MEDS: VITAMIN C PO SCH ×3 (06:26→21:00)
[2021-10-02] MEDS ORDERED: SYNTHROID PO SCH (06:30)
[2021-10-02] MEDS: BACTROBAN TP SCH ×2 (08:17→20:35)
[2021-10-02] MEDS: PEPCID PO SCH (08:18)
[2021-10-02] MEDS: LIPITOR PO SCH (08:18)
[2021-10-02] MEDS: COLACE PO SCH (08:18)
[2021-10-02] MEDS: XARELTO PO SCH (08:18)
[2021-10-02 08:21] VITALS: BP 139/70
[2021-10-02] MEDS ORDERED: CeleXA PO SCH (09:00)
[2021-10-02] MEDS ORDERED: LIPITOR PO SCH (09:00)
[2021-10-02] MEDS ORDERED: HYDROCHLOROTHIAZIDE PO SCH (09:00)
[2021-10-02] MEDS ORDERED: VITAMIN B-12 PO SCH (09:00)
[2021-10-02] MEDS ORDERED: COZAAR PO SCH (09:00)
[2021-10-02] MEDS: TRELEGY ELLIPTA 100-62.5-25 IH SCH (09:48)
[2021-10-02] MEDS ORDERED: NS 500ML 500 ML IV ONE (10:14)
[2021-10-02 10:47] VITALS: BP 117/68
--- NOTE | 2021-10-02 11:18 | PRM.PN ---
Subjective Subjective Date: October 02, 2021 Time: 11:16 Subjective Had episode of severe hypotension in bathroom this am Resolved with Conservative treatment VSS HGB pending NVM+ Will check lab Cont with PT Patient History: Alzheimer's disease 32 MOTHER Asthma 32 MOTHER Cerebrovascular disorder 32 MOTHER Chronic obstructive pulmonary disease 32 MOTHER Congestive heart failure 32 MOTHER 33 FATHER, , Age:71 (PASSED OF A HEART ATTACK) Diabetes insipidus G8 BROTHER G8 BROTHER FH: breast cancer G8 SISTER G8 SISTER FH: coronary artery bypass surgery 32 MOTHER 33 FATHER, , Age:71 FH: coronary artery disease 32 MOTHER 33 FATHER, , Age:71 FH: heart attack 32 MOTHER 33 FATHER, , Age:71 FH: uterine cancer 32 MOTHER High cholesterol G8 SISTER Hypertension 32 MOTHER G8 BROTHER G8 SISTER No Family History of: Diabetes mellitus Parkinson's disease Unknown VTE VTE Risk Total Score: >5 VTE Risk Score VTE Risk: Score 0-1 = Low Risk (Aggressive mobilization; early ambulation; no VTE prophylaxis required) Score 2: Moderate Risk (Intermittent/Pneumatic Compression Device OR Lovenox/Heparin/Coumadin) Score 3-4: High Risk (Intermittent/Pneumatic Compression Device AND Lovenox/Heparin/Coumadin) Score > or =5: Highest Risk (Intermittent/Pneumatic Compression Device AND Lovenox/Heparin/Coumadin) Antico:Hep/LMWH/Coum/Xarelto: Yes Mechanical device ordered: Yes Review of Systems Constitutional: No: Fever, Chills, Sweats, Weakness, Malaise, Other Eyes: No: Pain, Vision change, Conjunctivae inflammation, Eyelid inflammation, Other, Redness ENT: No: Ear pain, Ear discharge, Nose pain, Nose discharge, Nose congestion, Mouth pain, Mouth swelling, Throat pain, Throat swelling, Other Respiratory: No: Cough, Dry, Shortness of breath, SOB with excertion, Wheezing, Hemoptysis, Pleuritic Pain, Sputum, Wheezing, Other Cardiovascular: No: Chest Pain, Palpitations, Orthopnea, Paroxysmal Noc. Dyspnea, Edema, Lt Headedness, Other Gastrointestinal: No: Nausea, Vomiting, Abdominal Pain, Diarrhea, Constipation, Melena, Hematochezia, Other Genitourinary: No Dysuria, No Frequency, No Incontinence, No Hematuria, No Re tention, No Other Musculoskeletal: leg pain (R knee pain) Skin: No: Rash, Lesions, Jaundice, Bruising, Other Neurological: No: Weakness, Numbness, Incoordination, Change in speech, Confusion, Seizures, Other Allergies: Coded Allergies: adhesive tape (Verified Allergy, Unknown, BLISTERS, 02/27/19) PT CAN USE PAPER TAPE Uncoded Allergies: STERI STRIPS (Allergy, Unknown, BLISTERS, 07/11/17) Scheduled Ascorbic Acid (Vitamin C), 500 MG PO BID, (Reported) Aspirin (Aspir-Low), 81 MG PO DAILY, (Reported) Atorvastatin 80MG (Lipitor 80MG), 0.5 TAB PO DAILY, (Reported) Cholecalciferol (Vitamin D3) (Vitamin D), 1 CAP PO DAILY, (Reported) Citalopram Hydrobromide (Citalopram Hbr), 10 MG PO DAILY, (Reported) Cyanocobalamin (Vitamin B-12) (B-12), 1 TAB PO BID, (Reported) Fluticasone/Umeclidin/Vilanter (Trelegy Ellipta 100-62.5-25), 1 PUFF PO DAILY24, (Reported) Levothyroxine Sodium (Levothyroxine Sodium), 100 MCG PO DAILY, (Reported) Losartan/Hydrochlorothiazide (Losartan-Hctz 100-12.5 Mg Tab), 1 TAB PO DAILY, (Reported) Zinc (Zinc), 1 TAB PO QD, (Reported) Scheduled PRN Albuterol Sulfate (Proair Hfa), 8.5 GM IH Q4H PRN for SHORTNESS OF BREATH, (Reported) Discontinued Medications Tamsulosin Hcl (Flomax), 0.4 MG PO DAILY24 Discontinued Reason: No Longer Taking Tramadol Hcl (Tramadol Hcl), 50 MG PO Q6 PRN for PAIN Discontinued Reason: No Longer Taking Objective Vitals and I/O Vital Sign - Last 24 Hours 10/01/21 10/01/21 10/01/21 10/01/21 12:20 16:50 18:11 19:45 Temp 97.9 98.0 97.8 Pulse 68 56 67 72 Resp 19 19 18 17 B/P (MAP) 129/57 (81) 125/67 (86) 130/58 (82) Pulse Ox 92 96 94 97 O2 Delivery Room Air* Room Air* Room Air* Room Air* O2 Flow Rate 0 0 0 0 FiO2 21 21 21 21 5/13/22 5/14/22 5/14/22 5/14/22 20:40 00:23 04:31 04:33 Temp 97.7 97.5 Pulse 60 63 Resp 17 17 B/P (MAP) 122/61 (81) 121/71 (88) Pulse Ox 95 97 97 O2 Delivery Nasal Cannula* Room Air* Room Air* Room Air O2 Flow Rate 2 0 0 0.00 FiO2 10/02/21 10/02/21 10/02/21 10/02/21 06:26 06:26 07:21 08:21 Temp 98.5 Pulse 58 Resp 18 B/P (MAP) 121/71 121/71 139/70 (93) Pulse Ox 92 O2 Delivery Room Air Room Air* O2 Flow Rate 0 FiO2 21 10/02/21 10/02/21 09:36 10:47 Pulse 58 80 Resp 18 18 B/P (MAP) 117/68 (84) Pulse Ox 95 96 O2 Delivery Room Air* Room Air* O2 Flow Rate 0 0 FiO2 General: Alert, Oriented X3, Cooperative HEENT: Atraumatic, PERRLA Lungs: Clear to auscultation, Normal air movement Heart: Regular rate, Normal S1, Normal S2 Abdomen: Normal bowel sounds, Soft, No tenderness Extremities: No cyanosis, Normal pulses, Other (Right knee has 1-2+ effusion. Full extension, 120 degrees of flexion. Good medial and lateral stability. She has point tenderness to the medial and posterior joint line. ) Neuro: Normal speech, Normal tone, Sensation intact, Cranial nerves 3-12 NL Psych/Mental Status: Mental status NL All Results(Lab/Rad) Current Medications Medications (Trade) Dose Ordered Sig/David Route PRN Reason Start Time Stop Time Status Last Admin Dose Admin Mupirocin (Bactroban) 1 gm BID TP 09/30/21 06:00 10/30/21 05:59 10/02/21 08:17 Vancomycin HCl 1.5 gm/Sodium Chloride 300 ml @ 175 mls/hr OT ONCE IV 09/30/21 06:00 09/30/21 20:26 DC 09/30/21 13:10 Sodium Chloride 250 ml @ ud STK-MED ONCE .ROUTE 09/29/21 14:05 09/29/21 14:06 DC Sodium Chloride 1,000 ml @ ud STK-MED ONCE .ROUTE 09/29/21 14:05 09/29/21 14:06 DC Vancomycin HCl 2 ml @ STK-MED ONCE .ROUTE 09/29/21 14:06 09/29/21 14:06 DC Mupirocin (Bactroban Ointment) 1 gm STK-MED ONCE TP 09/29/21 14:06 09/29/21 14:06 DC Albuterol Sulfate (Ventolin Hfa) 1 inh Q4H PRN IH SHORTNESS OF BREATH 09/30/21 11:00 10/30/21 10:59 Ascorbic Acid (Vitamin C) 500 mg BID PO 09/30/21 21:00 10/01/21 10:47 DC 09/30/21 21:27 Atorvastatin Calcium (Lipitor) 40 mg DAILY PO 10/01/21 09:00 10/01/21 10:49 DC Citalopram Hydrobromide (CeleXA) 10 mg DAILY PO 10/01/21 09:00 10/01/21 10:47 DC Levothyroxine Sodium (Synthroid) 100 mcg ACB PO 10/01/21 06:30 10/01/21 10:50 DC 10/01/21 05:48 Losartan Potassium (Cozaar) 100 mg DAILY PO 10/01/21 09:00 10/01/21 10:48 DC Tramadol HCl (Ultram) 50 mg Q6H PRN PO PAIN 1 - 3 09/30/21 12:00 10/30/21 11:59 10/01/21 09:29 Tramadol HCl (Ultram) 100 mg Q6H PRN PO PAIN 7 - 10 09/30/21 12:00 10/30/21 11:59 10/01/21 16:58 Rivaroxaban (Xarelto) 10 mg DAILY PO 10/01/21 15:00 10/31/21 14:59 10/02/21 08:18 Docusate Sodium (Colace) 100 mg DAILY PO 10/01/21 09:00 10/31/21 08:59 10/02/21 08:18 Throat Lozenges (Cepacol Sore Throat Lozenge) 1 each PRN PRN MM SORE THROAT 09/30/21 12:00 10/30/21 11:59 Famotidine (Pepcid) 20 mg DAILY PO 10/01/21 09:00 10/31/21 08:59 10/02/21 08:18 Vancomycin HCl 1.5 gm/Sodium Chloride 250 ml Q12H IV 09/30/21 20:00 10/01/21 21:43 UNV 10/01/21 20:00 Acetaminophen (Tylenol) 1,000 mg Q6HR PO 09/30/21 12:00 10/30/21 11:59 10/02/21 06:25 Metoclopramide HCl (Reglan) 10 mg Q8HR PRN IV NAUSEA/VOMITING 09/30/21 12:00 10/30/21 11:59 Ketorolac Tromethamine (Toradol) 30 mg Q6H PRN IV PAIN 4 - 6 09/30/21 12:00 10/05/21 11:59 10/01/21 20:57 Acetaminophen 100 ml @ ud STK-MED ONCE IV 09/30/21 12:09 09/30/21 12:10 DC Gabapentin (Neurontin) 300 mg STK-MED ONCE .ROUTE 09/30/21 12:09 09/30/21 12:10 DC Celecoxib (Celebrex) 100 mg STK-MED ONCE .ROUTE 09/30/21 12:10 09/30/21 12:10 DC Scopolamine (Transderm-Scop) 1 each STK-MED ONCE TD 09/30/21 12:10 09/30/21 12:10 DC Gabapentin (Neurontin) 600 mg OT ONCE PO 09/30/21 12:00 09/30/21 20:33 DC 09/30/21 12:47 Tramadol HCl (Ultram) 100 mg OT ONCE PO 09/30/21 12:00 09/30/21 20:26 DC 09/30/21 12:49 Celecoxib (Celebrex) 400 mg OT ONCE PO 09/30/21 12:00 09/30/21 20:22 DC 09/30/21 12:47 Acetaminophen (Ofirmev) 1,000 mg OT ONCE IV 09/30/21 12:00 09/30/21 20:25 DC 09/30/21 12:44 Scopolamine (Transderm-Scop) 1 each OT ONCE TD 09/30/21 12:30 09/30/21 20:35 DC 09/30/21 12:30 Mupirocin (Bactroban Ointment) 1 gm OT ONCE TP 09/30/21 12:45 09/30/21 20:21 DC 09/30/21 12:45 Sodium Chloride (Sodium Chloride Irr Bottle) 1,000 ml STK-MED ONCE IR 09/30/21 13:10 09/30/21 13:11 DC Sterile Water (Water) 1,000 ml STK-MED ONCE .ROUTE 09/30/21 13:10 09/30/21 13:11 DC Sodium Chloride 250 ml @ ud STK-MED ONCE .ROUTE 09/30/21 13:10 09/30/21 13:11 DC Sodium Chloride (NS 3000ml Irr) 3,000 ml STK-MED ONCE IR 09/30/21 13:10 09/30/21 13:11 DC Bupivacaine HCl (Sensorcaine-Mpf 0.25% Vial) 2.5 mg STK-MED ONCE .ROUTE 09/30/21 13:19 09/30/21 13:19 DC Tranexamic Acid (Tranexamic Acid) 1,000 mg STK-MED ONCE .ROUTE 09/30/21 13:44 09/30/21 13:44 DC Propofol 100 ml @ ud STK-MED ONCE IV 09/30/21 13:44 09/30/21 13:44 DC Ondansetron HCl (Zofran) 4 mg STK-MED ONCE .ROUTE 09/30/21 13:44 09/30/21 13:44 DC Hydrochlorothiazide (Hydrochlorothiazide) 12.5 mg DAILY PO 10/01/21 09:00 10/01/21 10:48 DC Ascorbic Acid (Vitamin C) 500 mg BID PO 10/01/21 21:00 10/01/21 11:44 DC Citalopram Hydrobromide (CeleXA) 10 mg DAILY PO 10/02/21 09:00 10/01/21 11:45 DC Losartan Potassium (Cozaar) 100 mg DAILY PO 10/02/21 09:00 10/01/21 11:45 DC Hydrochlorothiazide (Hydrochlorothiazide) 12.5 mg DAILY PO 10/02/21 09:00 10/01/21 11:45 DC Atorvastatin Calcium (Lipitor) 40 mg DAILY PO 10/02/21 09:00 10/01/21 11:46 DC Levothyroxine Sodium (Synthroid) 100 mcg ACB PO 10/02/21 06:30 10/01/21 11:46 DC Zinc Sulfate (Zinc Sulfate) 220 mg HS PO 10/01/21 21:00 10/01/21 11:46 DC Non-Formulary Medication HERLINDA 180MG DAILY PO 10/02/21 09:00 11/01/21 08:59 10/02/21 06:25 Cyanocobalamin (Vitamin B-12) 1,000 mcg DAILY PO 10/02/21 09:00 10/01/21 11:46 DC Non-Formulary Medication VITAMIN D 25 MCG DAILY PO 10/02/21 09:00 11/01/21 08:59 10/02/21 06:26 Ascorbic Acid (Vitamin C) 500 mg BID PO 10/01/21 21:00 10/31/21 20:59 10/02/21 06:26 Citalopram Hydrobromide (CeleXA) 10 mg DAILY PO 10/02/21 09:00 11/01/21 08:59 10/02/21 06:26 Losartan Potassium (Cozaar) 100 mg DAILY PO 10/02/21 09:00 11/01/21 08:59 10/02/21 06:26 Hydrochlorothiazide (Hydrochlorothiazide) 12.5 mg DAILY PO 10/02/21 09:00 11/01/21 08:59 10/02/21 06:26 Atorvastatin Calcium (Lipitor) 40 mg DAILY PO 10/02/21 09:00 11/01/21 08:59 Levothyroxine Sodium (Synthroid) 100 mcg ACB PO 10/02/21 06:30 11/01/21 06:29 10/02/21 06:24 Zinc Sulfate (Zinc Sulfate) 220 mg HS PO 10/01/21 21:00 10/31/21 20:59 Cyanocobalamin (Vitamin B-12) 1,000 mcg DAILY PO 10/02/21 09:00 11/01/21 08:59 10/02/21 06:26 Vancomycin HCl 1 ml @ STK-MED ONCE .ROUTE 10/01/21 21:21 10/01/21 21:21 DC Sodium Chloride 500 ml @ STK-MED ONCE IV 10/01/21 21:22 10/01/21 21:23 DC Sodium Chloride 500 ml @ STK-MED ONCE IV 10/02/21 10:14 10/02/21 10:14 DC Course Sepsis Screening Results: Posi: NEGATIVE Sepsis Qualifier/Stage: NO DEFINITE RISK Duration or Total Time Spent w: 60 min Vitals & review Data Vital Sign - Last 24 Hours 10/01/21 10/01/21 10/01/21 10/01/21 12:20 16:50 18:11 19:45 Temp 97.9 98.0 97.8 Pulse 68 56 67 72 Resp 19 19 18 17 B/P (MAP) 129/57 (81) 125/67 (86) 130/58 (82) Pulse Ox 92 96 94 97 O2 Delivery Room Air* Room Air* Room Air* Room Air* O2 Flow Rate 0 0 0 0 FiO2 10/01/21 10/02/21 10/02/21 10/02/21 20:40 00:23 04:31 04:33 Temp 97.7 97.5 Pulse 60 63 Resp 17 17 B/P (MAP) 122/61 (81) 121/71 (88) Pulse Ox 95 97 97 O2 Delivery Nasal Cannula* Room Air* Room Air* Room Air O2 Flow Rate 2 0 0 0.00 FiO2 10/02/21 10/02/21 10/02/21 10/02/21 06:26 06:26 07:21 08:21 Temp 98.5 Pulse 58 Resp 18 B/P (MAP) 121/71 121/71 139/70 (93) Pulse Ox 92 O2 Delivery Room Air Room Air* O2 Flow Rate 0 FiO2 21 10/02/21 10/02/21 09:36 10:47 Pulse 58 80 Resp 18 18 B/P (MAP) 117/68 (84) Pulse Ox 95 96 O2 Delivery Room Air* Room Air* O2 Flow Rate 0 0 FiO2 21 Laboratory Tests Test 09/30/21 20:00 10/01/21 04:45 White Blood Count 12.6 10^3/uL 13.0 10^3/uL Red Blood Count 4.52 10^6/uL 4.28 10^6/uL Hemoglobin 13.2 g/dL 12.6 g/dL Hematocrit 41.0 % 38.4 % Mean Corpuscular Volume 90.7 fL 89.7 fL Mean Corpuscular Hemoglobin 29.2 pg 29.4 pg Mean Corpuscular Hemoglobin Concent 32.2 g/dL 32.8 g/dL Red Cell Distribution Width 13.4 % 13.3 % Platelet Count 286 10^3/uL 301 10^3/uL Mean Platelet Volume 9.0 fL 9.3 fL Current Medications Medications (Trade) Dose Ordered Sig/David PRN Reason Start Time Stop Time Status Last Admin Acetaminophen (Tylenol) 1,000 mg Q6HR 09/30/21 12:00 10/30/21 11:59 10/02/21 06:25 Albuterol Sulfate (Ventolin Hfa) 1 inh Q4H PRN SHORTNESS OF BREATH 09/30/21 11:00 10/30/21 10:59 Ascorbic Acid (Vitamin C) 500 mg BID 10/01/21 21:00 10/31/21 20:59 10/02/21 06:26 Atorvastatin Calcium (Lipitor) 40 mg DAILY 10/02/21 09:00 11/01/21 08:59 Citalopram Hydrobromide (CeleXA) 10 mg DAILY 10/02/21 09:00 11/01/21 08:59 10/02/21 06:26 Cyanocobalamin (Vitamin B-12) 1,000 mcg DAILY 10/02/21 09:00 11/01/21 08:59 10/02/21 06:26 Docusate Sodium (Colace) 100 mg DAILY 10/01/21 09:00 10/31/21 08:59 10/02/21 08:18 Famotidine (Pepcid) 20 mg DAILY 10/01/21 09:00 10/31/21 08:59 10/02/21 08:18 Hydrochlorothiazide (Hydrochlorothiazide) 12.5 mg DAILY 10/02/21 09:00 11/01/21 08:59 10/02/21 06:26 Ketorolac Tromethamine (Toradol) 30 mg Q6H PRN PAIN 4 - 6 09/30/21 12:00 10/05/21 11:59 10/01/21 20:57 Levothyroxine Sodium (Synthroid) 100 mcg ACB 10/02/21 06:30 11/01/21 06:29 10/02/21 06:24 Losartan Potassium (Cozaar) 100 mg DAILY 10/02/21 09:00 11/01/21 08:59 10/02/21 06:26 Metoclopramide HCl (Reglan) 10 mg Q8HR PRN NAUSEA/VOMITING 09/30/21 12:00 10/30/21 11:59 Mupirocin (Bactroban) 1 gm BID 09/30/21 06:00 10/30/21 05:59 10/02/21 08:17 Non-Formulary Medication HERLINDA 180MG DAILY 10/02/21 09:00 11/01/21 08:59 10/02/21 06:25 Non-Formulary Medication VITAMIN D 25 MCG DAILY 10/02/21 09:00 11/01/21 08:59 10/02/21 06:26 Rivaroxaban (Xarelto) 10 mg DAILY 10/01/21 15:00 10/31/21 14:59 10/02/21 08:18 Throat Lozenges (Cepacol Sore Throat Lozenge) 1 each PRN PRN SORE THROAT 09/30/21 12:00 10/30/21 11:59 Tramadol HCl (Ultram) 50 mg Q6H PRN PAIN 1 - 3 09/30/21 12:00 10/30/21 11:59 10/01/21 09:29 Tramadol HCl (Ultram) 100 mg Q6H PRN PAIN 7 - 10 09/30/21 12:00 10/30/21 11:59 10/01/21 16:58 Zinc Sulfate (Zinc Sulfate) 220 mg HS 10/01/21 21:00 10/31/21 20:59 LEVEL 1 SEPSIS INFECTION CRITE: ABX Therapy, Recent Invasive Procedure LEVEL 2-SIRS (LIST ALL THAT AP: [id number] Cardiovascular Evidence: Not Assessed or None Hematologic Evidence: None/Not assessed Hepatic Evidence: None/Not assessed Metabolic Evidence: None/Not assessed Neurological Evidence: None/Not assessed Respiratory Evidence: None/Not assessed Renal Evidence: None/Not assessed O2 Sat by Pulse Oximetry: 96 Oxygen Flow Rate: 0.00 Assessment/Plan Assessment/Plan Assessment/Plan Radiology: MRI shows a tear to the posterior horn of the medial meniscus, moderate to severe narrowing of the medial femoral condyle with osteophytes and subchondral cysts. Assessment: Right knee OA Plan: TRAY LOW MD October 02, 2021 11:18
[2021-10-02 11:35] LABS: RED CELL DISTRIBUTION WIDTH 13.8 % (11.5-14.5)
[2021-10-02 11:51] LABS: CARBON DIOXIDE 25.5 mmol/L (20.0-32)
--- NOTE | 2021-10-02 17:37 | PCM.EKG ---
[facility] Test Date: 2021-10-02 Test Time: 17:21:52 Pat Name: AGUSTO RODRÍGUEZ Department: Room: 340 A Gender: F [employer]: : 1955 Requested By: TRAY MAE Order Number: [id number] Reading MD: Measurements Intervals [place] Rate: 61 P: 37 TX: 154 QRS: -19 QRSD: 98 T: 30 QT: 424 QTc: 427 Interpretive Statements Sinus rhythm Ventricular premature complex Borderline left axis deviation Low voltage, precordial leads Consider anterior infarct No previous ECG available for comparison Please click the below link to view image of tracing.
[2021-10-02 17:42] VITALS: BP 124/68
[2021-10-02] MEDS: ZINC SULFATE PO SCH ×2 (20:35→21:01)
[2021-10-02 21:03] VITALS: BP 121/69
[2021-10-03 01:19] VITALS: BP 123/71
[2021-10-03 03:40] VITALS: BP 90/53
[2021-10-03 04:50] VITALS: BP 115/67
[2021-10-03] MEDS: TYLENOL PO SCH ×2 (05:11→12:04)
[2021-10-03] MEDS: SYNTHROID PO SCH (05:11)
[2021-10-03] MEDS: VITAMIN B-12 PO SCH (09:27)
[2021-10-03] MEDS: PEPCID PO SCH (09:27)
[2021-10-03] MEDS: CeleXA PO SCH (09:27)
[2021-10-03] MEDS: XARELTO PO SCH (09:27)
[2021-10-03] MEDS: NON-FORMULARY MEDICATION 1 EA EA PO SCH ×2 (09:27)
[2021-10-03] MEDS: COLACE PO SCH (09:27)
[2021-10-03] MEDS: LIPITOR PO SCH (09:27)
[2021-10-03] MEDS: VITAMIN C PO SCH (09:27)
[2021-10-03] MEDS: BACTROBAN TP SCH (09:27)
[2021-10-03] MEDS: COZAAR PO SCH (09:27)
[2021-10-03] MEDS: HYDROCHLOROTHIAZIDE PO SCH (09:27)
[2021-10-03 10:14] VITALS: BP 120/64
[2021-10-03] MEDS: TRELEGY ELLIPTA 100-62.5-25 IH SCH (10:21)
[2021-10-03 12:24] VITALS: BP 114/58
--- NOTE | 2021-10-03 13:17 | PRM.PN ---
Subjective Subjective Date: October 03, 2021 Time: 13:16 Subjective Independent with PT and OT No more episodes of dizziness Afebrile NVM+ Will dc Patient History: Alzheimer's disease 32 MOTHER Asthma 32 MOTHER Cerebrovascular disorder 32 MOTHER Chronic obstructive pulmonary disease 32 MOTHER Congestive heart failure 32 MOTHER 33 FATHER, , Age:71 (PASSED OF A HEART ATTACK) Diabetes insipidus G8 BROTHER G8 BROTHER FH: breast cancer G8 SISTER G8 SISTER FH: coronary artery bypass surgery 32 MOTHER 33 FATHER, , Age:71 FH: coronary artery disease 32 MOTHER 33 FATHER, , Age:71 FH: heart attack 32 MOTHER 33 FATHER, , Age:71 FH: uterine cancer 32 MOTHER High cholesterol G8 SISTER Hypertension 32 MOTHER G8 BROTHER G8 SISTER No Family History of: Diabetes mellitus Parkinson's disease Unknown VTE VTE Risk Total Score: >5 VTE Risk Score VTE Risk: Score 0-1 = Low Risk (Aggressive mobilization; early ambulation; no VTE prophylaxis required) Score 2: Moderate Risk (Intermittent/Pneumatic Compression Device OR Lovenox/Heparin/Coumadin) Score 3-4: High Risk (Intermittent/Pneumatic Compression Device AND Lovenox/Heparin/Coumadin) Score > or =5: Highest Risk (Intermittent/Pneumatic Compression Device AND Lovenox/Heparin/Coumadin) Antico:Hep/LMWH/Coum/Xarelto: Yes Mechanical device ordered: Yes Review of Systems Constitutional: No: Fever, Chills, Sweats, Weakness, Malaise, Other Eyes: No: Pain, Vision change, Conjunctivae inflammation, Eyelid inflammation, Other, Redness ENT: No: Ear pain, Ear discharge, Nose pain, Nose discharge, Nose congestion, Mouth pain, Mouth swelling, Throat pain, Throat swelling, Other Respiratory: No: Cough, Dry, Shortness of breath, SOB with excertion, Wheezing, Hemoptysis, Pleuritic Pain, Sputum, Wheezing, Other Cardiovascular: No: Chest Pain, Palpitations, Orthopnea, Paroxysmal Noc. Dyspnea, Edema, Lt Headedness, Other Gastrointestinal: No: Nausea, Vomiting, Abdominal Pain, Diarrhea, Constipation, Melena, Hematochezia, Other Genitourinary: No Dysuria, No Frequency, No Incontinence, No Hematuria, No Retention, No Other Musculoskeletal: leg pain (R knee pain) Skin: No: Rash, Lesions, Jaundice, Bruising, Other Neurological: No: Weakness, Numbness, Incoordination, Change in speech, Confusion, Seizures, Other Allergies: Coded Allergies: adhesive tape (Verified Allergy, Unknown, BLISTERS, 02/27/19) PT CAN USE PAPER TAPE Uncoded Allergies: STERI STRIPS (Allergy, Unknown, BLISTERS, 07/11/17) Scheduled Ascorbic Acid (Vitamin C), 500 MG PO BID, (Reported) Aspirin (Aspir-Low), 81 MG PO DAILY, (Reported) Atorvastatin 80MG (Lipitor 80MG), 0.5 TAB PO DAILY, (Reported) Cholecalciferol (Vitamin D3) (Vitamin D), 1 CAP PO DAILY, (Reported) Citalopram Hydrobromide (Citalopram Hbr), 10 MG PO DAILY, (Reported) Cyanocobalamin (Vitamin B-12) (B-12), 1 TAB PO BID, (Reported) Fluticasone/Umeclidin/Vilanter (Trelegy Ellipta 100-62.5-25), 1 PUFF PO DAILY24, (Reported) Levothyroxine Sodium (Levothyroxine Sodium), 100 MCG PO DAILY, (Reported) Losartan/Hydrochlorothiazide (Losartan-Hctz 100-12.5 Mg Tab), 1 TAB PO DAILY, (Reported) Zinc (Zinc), 1 TAB PO QD, (Reported) Scheduled PRN Albuterol Sulfate (Proair Hfa), 8.5 GM IH Q4H PRN for SHORTNESS OF BREATH, (Reported) Discontinued Medications Tamsulosin Hcl (Flomax), 0.4 MG PO DAILY24 Discontinued Reason: No Longer Taking Tramadol Hcl (Tramadol Hcl), 50 MG PO Q6 PRN for PAIN Discontinued Reason: No Longer Taking Objective Vitals and I/O Vital Sign - Last 24 Hours 10/02/21 10/02/21 10/02/21 10/02/21 13:56 17:42 18:49 19:37 Temp 98.3 Pulse 62 62 Resp 18 18 B/P (MAP) 124/68 (86) Pulse Ox 96 96 O2 Delivery Room Air Room Air* Nasal Cannula* Room Air O2 Flow Rate 0 2 FiO2 21 28 10/02/21 10/03/21 10/03/21 10/03/21 21:03 01:19 04:50 09:27 Temp 98.2 97.7 97.9 Pulse 59 60 53 Resp 16 18 17 B/P (MAP) 121/69 (86) 123/71 (88) 115/67 (83) 115/67 Pulse Ox 94 98 97 O2 Delivery Room Air* Nasal Cannula* Nasal Cannula* O2 Flow Rate 0 2 2 FiO2 21 28 28 10/03/21 10/03/21 10/03/21 10/03/21 09:27 09:42 10:14 10:17 Temp 97.6 Pulse 53 60 Resp 17 16 B/P (MAP) 115/67 120/64 (82) Pulse Ox 97 94 O2 Delivery Room Air* Room Air* Room Air O2 Flow Rate 0 0 FiO2 21 21 10/03/21 12:24 Temp 97.9 Pulse 58 Resp 16 B/P (MAP) 114/58 (76) Pulse Ox 98 O2 Delivery Room Air* O2 Flow Rate 0 FiO2 21 Intake and Output 10/03/21 07:00 Intake Total 1157 ml Output Total 900 ml Balance 257 ml General: Alert, Oriented X3, Cooperative HEENT: Atraumatic, PERRLA Lungs: Clear to auscultation, Normal air movement Heart: Regular rate, Normal S1, Normal S2 Abdomen: Normal bowel sounds, Soft, No tenderness Extremities: No cyanosis, Normal pulses, Other (Right knee has 1-2+ effusion. Full extension, 120 degrees of flexion. Good medial and lateral stability. She has point tenderness to the medial and posterior joint line. ) Neuro: Normal speech, Normal tone, Sensation intact, Cranial nerves 3-12 NL Psych/Mental Status: Mental status NL All Results(Lab/Rad) Current Medications Medications (Trade) Dose Ordered Sig/David Route PRN Reason Start Time Stop Time Status Last Admin Dose Admin Mupirocin (Bactroban) 1 gm BID TP 09/30/21 06:00 10/30/21 05:59 10/02/21 08:17 Vancomycin HCl 1.5 gm/Sodium Chloride 300 ml @ 175 mls/hr OT ONCE IV 09/30/21 06:00 09/30/21 20:26 DC 09/30/21 13:10 Sodium Chloride 250 ml @ ud STK-MED ONCE .ROUTE 09/29/21 14:05 09/29/21 14:06 DC Sodium Chloride 1,000 ml @ ud STK-MED ONCE .ROUTE 09/29/21 14:05 09/29/21 14:06 DC Vancomycin HCl 2 ml @ ud STK-MED ONCE .ROUTE 09/29/21 14:06 09/29/21 14:06 DC Mupirocin (Bactroban Ointment) 1 gm STK-MED ONCE TP 09/29/21 14:06 09/29/21 14:06 DC Albuterol Sulfate (Ventolin Hfa) 1 inh Q4H PRN IH SHORTNESS OF BREATH 09/30/21 11:00 10/30/21 10:59 Ascorbic Acid (Vitamin C) 500 mg BID PO 09/30/21 21:00 10/01/21 10:47 DC 09/30/21 21:27 Atorvastatin Calcium (Lipitor) 40 mg DAILY PO 10/01/21 09:00 10/01/21 10:49 DC Citalopram Hydrobromide (CeleXA) 10 mg DAILY PO 10/01/21 09:00 10/01/21 10:47 DC Levothyroxine Sodium (Synthroid) 100 mcg ACB PO 10/01/21 06:30 10/01/21 10:50 DC 10/01/21 05:48 Losartan Potassium (Cozaar) 100 mg DAILY PO 10/01/21 09:00 10/01/21 10:48 DC Tramadol HCl (Ultram) 50 mg Q6H PRN PO PAIN 1 - 3 09/30/21 12:00 10/30/21 11:59 10/01/21 09:29 Tramadol HCl (Ultram) 100 mg Q6H PRN PO PAIN 7 - 10 09/30/21 12:00 10/30/21 11:59 10/01/21 16:58 Rivaroxaban (Xarelto) 10 mg DAILY PO 10/01/21 15:00 10/31/21 14:59 10/02/21 08:18 Docusate Sodium (Colace) 100 mg DAILY PO 10/01/21 09:00 10/31/21 08:59 10/02/21 08:18 Throat Lozenges (Cepacol Sore Throat Lozenge) 1 each PRN PRN MM SORE THROAT 09/30/21 12:00 10/30/21 11:59 Famotidine (Pepcid) 20 mg DAILY PO 10/01/21 09:00 10/31/21 08:59 10/02/21 08:18 Vancomycin HCl 1.5 gm/Sodium Chloride 250 ml Q12H IV 09/30/21 20:00 10/01/21 21:43 UNV 10/01/21 20:00 Acetaminophen (Tylenol) 1,000 mg Q6HR PO 09/30/21 12:00 10/30/21 11:59 10/02/21 06:25 Metoclopramide HCl (Reglan) 10 mg Q8HR PRN IV NAUSEA/VOMITING 09/30/21 12:00 10/30/21 11:59 Ketorolac Tromethamine (Toradol) 30 mg Q6H PRN IV PAIN 4 - 6 09/30/21 12:00 10/05/21 11:59 10/01/21 20:57 Acetaminophen 100 ml @ ud STK-MED ONCE IV 09/30/21 12:09 09/30/21 12:10 DC Gabapentin (Neurontin) 300 mg STK-MED ONCE .ROUTE 09/30/21 12:09 09/30/21 12:10 DC Celecoxib (Celebrex) 100 mg STK-MED ONCE .ROUTE 09/30/21 12:10 09/30/21 12:10 DC Scopolamine (Transderm-Scop) 1 each STK-MED ONCE TD 09/30/21 12:10 09/30/21 12:10 DC Gabapentin (Neurontin) 600 mg OT ONCE PO 09/30/21 12:00 09/30/21 20:33 DC 09/30/21 12:47 Tramadol HCl (Ultram) 100 mg OT ONCE PO 09/30/21 12:00 09/30/21 20:26 DC 09/30/21 12:49 Celecoxib (Celebrex) 400 mg OT ONCE PO 09/30/21 12:00 09/30/21 20:22 DC 09/30/21 12:47 Acetaminophen (Ofirmev) 1,000 mg OT ONCE IV 09/30/21 12:00 09/30/21 20:25 DC 09/30/21 12:44 Scopolamine (Transderm-Scop) 1 each OT ONCE TD 09/30/21 12:30 09/30/21 20:35 DC 09/30/21 12:30 Mupirocin (Bactroban Ointment) 1 gm OT ONCE TP 09/30/21 12:45 09/30/21 20:21 DC 09/30/21 12:45 Sodium Chloride (Sodium Chloride Irr Bottle) 1,000 ml STK-MED ONCE IR 09/30/21 13:10 09/30/21 13:11 DC Sterile Water (Water) 1,000 ml STK-MED ONCE .ROUTE 09/30/21 13:10 09/30/21 13:11 DC Sodium Chloride 250 ml @ ud STK-MED ONCE .ROUTE 09/30/21 13:10 09/30/21 13:11 DC Sodium Chloride (NS 3000ml Irr) 3,000 ml STK-MED ONCE IR 09/30/21 13:10 09/30/21 13:11 DC Bupivacaine HCl (Sensorcaine-Mpf 0.25% Vial) 2.5 mg STK-MED ONCE .ROUTE 09/30/21 13:19 09/30/21 13:19 DC Tranexamic Acid (Tranexamic Acid) 1,000 mg STK-MED ONCE .ROUTE 09/30/21 13:44 09/30/21 13:44 DC Propofol 100 ml @ ud STK-MED ONCE IV 09/30/21 13:44 09/30/21 13:44 DC Ondansetron HCl (Zofran) 4 mg STK-MED ONCE .ROUTE 09/30/21 13:44 09/30/21 13:44 DC Hydrochlorothiazide (Hydrochlorothiazide) 12.5 mg DAILY PO 10/01/21 09:00 10/01/21 10:48 DC Ascorbic Acid (Vitamin C) 500 mg BID PO 10/01/21 21:00 10/01/21 11:44 DC Citalopram Hydrobromide (CeleXA) 10 mg DAILY PO 10/02/21 09:00 10/01/21 11:45 DC Losartan Potassium (Cozaar) 100 mg DAILY PO 10/02/21 09:00 10/01/21 11:45 DC Hydrochlorothiazide (Hydrochlorothiazide) 12.5 mg DAILY PO 10/02/21 09:00 10/01/21 11:45 DC Atorvastatin Calcium (Lipitor) 40 mg DAILY PO 10/02/21 09:00 10/01/21 11:46 DC Levothyroxine Sodium (Synthroid) 100 mcg ACB PO 10/02/21 06:30 10/01/21 11:46 DC Zinc Sulfate (Zinc Sulfate) 220 mg HS PO 10/01/21 21:00 10/01/21 11:46 DC Non-Formulary Medication HERLINDA 180MG DAILY PO 10/02/21 09:00 11/01/21 08:59 10/02/21 06:25 Cyanocobalamin (Vitamin B-12) 1,000 mcg DAILY PO 10/02/21 09:00 10/01/21 11:46 DC Non-Formulary Medication VITAMIN D 25 MCG DAILY PO 10/02/21 09:00 11/01/21 08:59 10/02/21 06:26 Ascorbic Acid (Vitamin C) 500 mg BID PO 10/01/21 21:00 10/31/21 20:59 10/02/21 06:26 Citalopram Hydrobromide (CeleXA) 10 mg DAILY PO 10/02/21 09:00 11/01/21 08:59 10/02/21 06:26 Losartan Potassium (Cozaar) 100 mg DAILY PO 10/02/21 09:00 11/01/21 08:59 10/02/21 06:26 Hydrochlorothiazide (Hydrochlorothiazide) 12.5 mg DAILY PO 10/02/21 09:00 11/01/21 08:59 10/02/21 06:26 Atorvastatin Calcium (Lipitor) 40 mg DAILY PO 10/02/21 09:00 11/01/21 08:59 Levothyroxine Sodium (Synthroid) 100 mcg ACB PO 10/02/21 06:30 11/01/21 06:29 10/02/21 06:24 Zinc Sulfate (Zinc Sulfate) 220 mg HS PO 10/01/21 21:00 10/31/21 20:59 Cyanocobalamin (Vitamin B-12) 1,000 mcg DAILY PO 10/02/21 09:00 11/01/21 08:59 10/02/21 06:26 Vancomycin HCl 1 ml @ STK-MED ONCE .ROUTE 10/01/21 21:21 10/01/21 21:21 DC Sodium Chloride 500 ml @ STK-MED ONCE IV 10/01/21 21:22 10/01/21 21:23 DC Sodium Chloride 500 ml @ STK-MED ONCE IV 10/02/21 10:14 10/02/21 10:14 DC Course Sepsis Screening Results: Posi: NEGATIVE Sepsis Qualifier/Stage: NO DEFINITE RISK Duration or Total Time Spent w: 60 min Vitals & review Data Vital Sign - Last 24 Hours 10/01/21 10/01/21 10/01/21 10/01/21 12:20 16:50 18:11 19:45 Temp 97.9 98.0 97.8 Pulse 68 56 67 72 Resp 19 19 18 17 B/P (MAP) 129/57 (81) 125/67 (86) 130/58 (82) Pulse Ox 92 96 94 97 O2 Delivery Room Air* Room Air* Room Air* Room Air* O2 Flow Rate 0 0 0 0 FiO2 10/01/21 10/02/21 10/02/21 10/02/21 20:40 00:23 04:31 04:33 Temp 97.7 97.5 Pulse 60 63 Resp 17 17 B/P (MAP) 122/61 (81) 121/71 (88) Pulse Ox 95 97 97 O2 Delivery Nasal Cannula* Room Air* Room Air* Room Air O2 Flow Rate 2 0 0 0.00 FiO2 10/02/21 10/02/21 10/02/21 10/02/21 06:26 06:26 07:21 08:21 Temp 98.5 Pulse 58 Resp 18 B/P (MAP) 121/71 121/71 139/70 (93) Pulse Ox 92 O2 Delivery Room Air Room Air* O2 Flow Rate 0 FiO2 21 10/02/21 10/02/21 09:36 10:47 Pulse 58 80 Resp 18 18 B/P (MAP) 117/68 (84) Pulse Ox 95 96 O2 Delivery Room Air* Room Air* O2 Flow Rate 0 0 FiO2 Laboratory Tests Test 09/30/21 20:00 10/01/21 04:45 White Blood Count 12.6 10^3/uL 13.0 10^3/uL Red Blood Count 4.52 10^6/uL 4.28 10^6/uL Hemoglobin 13.2 g/dL 12.6 g/dL Hematocrit 41.0 % 38.4 % Mean Corpuscular Volume 90.7 fL 89.7 fL Mean Corpuscular Hemoglobin 29.2 pg 29.4 pg Mean Corpuscular Hemoglobin Concent 32.2 g/dL 32.8 g/dL Red Cell Distribution Width 13.4 % 13.3 % Platelet Count 286 10^3/uL 301 10^3/uL Mean Platelet Volume 9.0 fL 9.3 fL Current Medications Medications (Trade) Dose Ordered Sig/David PRN Reason Start Time Stop Time Status Last Admin Acetaminophen (Tylenol) 1,000 mg Q6HR 09/30/21 12:00 10/30/21 11:59 10/02/21 06:25 Albuterol Sulfate (Ventolin Hfa) 1 inh Q4H PRN SHORTNESS OF BREATH 09/30/21 11:00 10/30/21 10:59 Ascorbic Acid (Vitamin C) 500 mg BID 10/01/21 21:00 10/31/21 20:59 10/02/21 06:26 Atorvastatin Calcium (Lipitor) 40 mg DAILY 10/02/21 09:00 11/01/21 08:59 Citalopram Hydrobromide (CeleXA) 10 mg DAILY 10/02/21 09:00 11/01/21 08:59 10/02/21 06:26 Cyanocobalamin (Vitamin B-12) 1,000 mcg DAILY 10/02/21 09:00 11/01/21 08:59 10/02/21 06:26 Docusate Sodium (Colace) 100 mg DAILY 10/01/21 09:00 10/31/21 08:59 10/02/21 08:18 Famotidine (Pepcid) 20 mg DAILY 10/01/21 09:00 10/31/21 08:59 10/02/21 08:18 Hydrochlorothiazide (Hydrochlorothiazide) 12.5 mg DAILY 10/02/21 09:00 11/01/21 08:59 10/02/21 06:26 Ketorolac Tromethamine (Toradol) 30 mg Q6H PRN PAIN 4 - 6 09/30/21 12:00 10/05/21 11:59 10/01/21 20:57 Levothyroxine Sodium (Synthroid) 100 mcg ACB 10/02/21 06:30 11/01/21 06:29 10/02/21 06:24 Losartan Potassium (Cozaar) 100 mg DAILY 10/02/21 09:00 11/01/21 08:59 10/02/21 06:26 Metoclopramide HCl (Reglan) 10 mg Q8HR PRN NAUSEA/VOMITING 09/30/21 12:00 10/30/21 11:59 Mupirocin (Bactroban) 1 gm BID 09/30/21 06:00 10/30/21 05:59 10/02/21 08:17 Non-Formulary Medication HERLINDA 180MG DAILY 10/02/21 09:00 11/01/21 08:59 10/02/21 06:25 Non-Formulary Medication VITAMIN D 25 MCG DAILY 10/02/21 09:00 11/01/21 08:59 10/02/21 06:26 Rivaroxaban (Xarelto) 10 mg DAILY 10/01/21 15:00 10/31/21 14:59 10/02/21 08:18 Throat Lozenges (Cepacol Sore Throat Lozenge) 1 each PRN PRN SORE THROAT 09/30/21 12:00 10/30/21 11:59 Tramadol HCl (Ultram) 50 mg Q6H PRN PAIN 1 - 3 09/30/21 12:00 10/30/21 11:59 10/01/21 09:29 Tramadol HCl (Ultram) 100 mg Q6H PRN PAIN 7 - 10 09/30/21 12:00 10/30/21 11:59 10/01/21 16:58 Zinc Sulfate (Zinc Sulfate) 220 mg HS 10/01/21 21:00 10/31/21 20:59 LEVEL 1 SEPSIS INFECTION CRITE: ABX Therapy, Recent Invasive Procedure LEVEL 2-SIRS (LIST ALL THAT AP: [id number] Cardiovascular Evidence: Not Assessed or None Hematologic Evidence: None/Not assessed Hepatic Evidence: None/Not assessed Metabolic Evidence: None/Not assessed Neurological Evidence: None/Not assessed Respiratory Evidence: None/Not assessed Renal Evidence: None/Not assessed O2 Sat by Pulse Oximetry: 98 Oxygen Flow Rate: 0.00 Assessment/Plan Assessment/Plan Assessment/Plan Radiology: MRI shows a tear to the posterior horn of the medial meniscus, moderate to severe narrowing of the medial femoral condyle with osteophytes and subchondral cysts. Assessment: Right knee OA Plan: R TRAY MUNIZ MD October 03, 2021 13:17
--- NOTE | 2021-10-03 14:00 | NUR ---
DISCHARGE PT'S IV DISCONTINUED VIA ASEPTIC TECHNIQUE, PT TOLERATED WELL, CATHETER IN TACT. PT PROVIDED DISCHARGE PACKET AND GIVEN INSTRUCTIONS. PT INSTRUCTED ON F/U WITH [facility]ARE, DR. MAE, AND PCP. PT DENIES ANY NEEDS AT THIS TIME. PT TAKEN TO PRIVATE AUTO VIA WHEELCHAIR AT THIS TIME. 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
--- NOTE | 2021-10-03 14:08 | NUR ---
PRESCRIPTIONS PRESCRIPTIONS CALLED INTO [facility] BY THIS NURSE AT THIS TIME.
[2021-10-03 14:25] VITALS: BP 114/58
--- NOTE | 2021-10-03 15:04 | DSH ---
DATE OF DISCHARGE: 10/03/2021 DICTATOR NAME: Jovanni Rodriguez MD ADMITTING DIAGNOSES: Osteoarthritis of the right knee. Other diagnoses include chronic obstructive pulmonary disease, gastroesophageal reflux disease. DISCHARGE DIAGNOSES: Osteoarthritis of the right knee. Other diagnoses include chronic obstructive pulmonary disease, gastroesophageal reflux disease. Postoperative anemia secondary to acute surgical blood loss expected. OPERATIVE PROCEDURE DATE: 09/30/2021. PROCEDURE PERFORMED: Right total knee arthroplasty. CONSULTATIONS: Hospitalist. COMPLICATIONS: None. SUMMARY OF ADMISSION: The patient is a 66-year-old female who had end-stage OA about the right knee despite conservative treatment. Please refer to history and physical for indications for surgery. The patient was taken to the operating room on 09/30/2021, where she underwent right total knee arthroplasty. Postoperatively, the patient has done well. She has been on a regular diet throughout her hospital course. The patient had physical therapy and occupational therapy and on discharge can ambulate at least 100 feet with her walker and is able to go up and down stairs as well as transfer independently. The patient's hemoglobin dropped to a low of 11; however, she maintained normal vital signs and good urinary output. The patient's pain is well controlled with tramadol and Tylenol. The patient will be discharged today on 10/03/2021. Instructed to leave her dressing intact. The patient will use her walker and weightbear as tolerated. She has arranged physical therapy at [facility]. The patient will be seen back in my office in 5 days. She will be instructed to leave her dressing intact and to take aspirin 81 mg twice a day for a month for DVT prophylaxis. The patient will be given a prescription for tramadol for the pain. The patient will be seen in my office in 5 days for a wound check. Jovanni Rodriguez MD DR: PAU/DURAN TID: [id number] RECEIPT: [id number]
== END 2021-10-03 14:00 | disposition home or self-care (01) | DRG 470 ==
LOC: MS 16:55
PROVIDERS: ADMIT Orthopaedic Surgery; ATTEND Orthopaedic Surgery
PROC: 0SRC0J9 Replacement of Right Knee Joint with Synthetic Substitute, Cemented, Open Approach (ICD-10-PCS; principal; 2021-09-30 13:20)
DX: M17.11 Unilateral primary osteoarthritis, right knee (principal); D62 Acute posthemorrhagic anemia; J44.9 Chronic obstructive pulmonary disease, unspecified; E03.9 Hypothyroidism, unspecified; E78.5 Hyperlipidemia, unspecified; K21.9 Gastro-esophageal reflux disease without esophagitis; F32.A Depression, unspecified; S83.249A Other tear of medial meniscus, current injury, unspecified knee, initial encounter; Z80.3 Family history of malignant neoplasm of breast; Z82.49 Family history of ischemic heart disease and other diseases of the circulatory system; Z85.3 Personal history of malignant neoplasm of breast; Z80.59 Family history of malignant neoplasm of other urinary tract organ; Z83.6 Family history of other diseases of the respiratory system; Z79.899 Other long term (current) drug therapy; Z90.49 Acquired absence of other specified parts of digestive tract
CPT/HCPCS: 36415; 71046; 73560; 80053; 85025; 85027; 87070; 87086; 93005; 97161; 97166; 97530; A4217; C1713; C1776; G0378; J0131; J1100; J1885; J2250; J2405; J3370; J3490; J7030; J7040; J7050; J7120; 97116-GP; 97535-GO; 97760-GP; C9290; J8499